=== PATIENT | male | born 1965 | race Hispanic/Latino ===

== ENCOUNTER 2018-08-26 15:43 | Emergency (ER) | payer OTHER | END 2018-08-26 17:09 | disposition home or self-care (01) | LOC: EDH 15:43 | DX: S90.112A Contusion of left great toe without damage to nail, initial encounter (principal); R60.0 Localized edema; E11.9 Type 2 diabetes mellitus without complications; I10 Essential (primary) hypertension; Z87.891 Personal history of nicotine dependence; X58.XXXA Exposure to other specified factors, initial encounter; Y93.89 Activity, other specified; Y92.89 Other specified places as the place of occurrence of the external cause; Y99.8 Other external cause status | CPT/HCPCS: 93971 ==

== ENCOUNTER 2018-09-15 15:19 | Inpatient (IN) | payer SELFPAY ==
[~2018-09-15] VITALS: Ht 182.9 cm; Wt 108.0 kg
[2018-09-15] MEDS ORDERED: MORPHINE SULFATE 2 MG/ML 1ML SYG ONE ×2 (15:50→19:23)
[2018-09-15 15:54] LABS: BASOPHILS % (AUTO) 0.3 % (0.0-5.0); HEMATOCRIT 37.3 % (42-54); LYMPHOCYTES % (AUTO) 9.1 % (21.0-51.0); MEAN CORPUSCULAR HEMOGLOBIN 31.4 pg (27.0-33.0); MEAN CORPUSCULAR HGB CONC 33.9 g/dL (32.0-36.0); MEAN CORPUSCULAR VOLUME 92.6 fL (79-99); MONOCYTES % (AUTO) 7.4 % (3.0-13.0); NEUTROPHILS % (AUTO) 83.2 % (40.0-77.0); NUCLEATED RED BLOOD CELLS 0.2 % (0.0-0.19); PLATELET COUNT (AUTO) 56 K/uL (130-400); RED BLOOD CELL COUNT(AUTO) 4.03 MIL/uL (4.50-6.20); WHITE BLOOD COUNT (AUTO) 6.2 K/uL (4.8-10.8)
[2018-09-15 16:05] LABS: CREATININE 1.4 mg/dL (0.5-1.5); POTASSIUM 4.3 mmol/L (3.5-5.1)
[2018-09-15 16:09] LABS: INR 1.1 (0.85-1.15); PARTIAL THROMBOPLASTIN TIME 26.1 SEC (26.3-35.5); PROTHROMBIN TIME 11.5 SEC (9.6-11.6)
[2018-09-15 16:19] LABS: ALBUMIN 2.8 g/dL (3.5-5.0); BILIRUBIN,TOTAL 1.4 mg/dL (0.2-1.0); TOTAL PROTEIN, SERUM 7.1 g/dL (6.0-8.3)
[2018-09-15 16:28] LABS: APPEARANCE,URINE CLOUDY (CLEAR); BILIRUBIN,URINE SMALL (NEGATIVE); COLOR,URINE YELLOW (YELLOW); GLUCOSE, URINE (UA) >=1000 mg/dL (NEGATIVE); KETONES,URINE 5 mg/dL (NEGATIVE); LEUKOCYTE ESTERASE ,URINE NEGATIVE (NEGATIVE); NITRATE,URINE NEGATIVE (NEGATIVE); OCCULT BLOOD,URINE LARGE (NEGATIVE); PH,URINE 5.5 (5.0-8.0); PROTEIN,URINE 30 mg/dL (NEGATIVE)
[2018-09-15 16:48] LABS: BACTERIA,URINE Moderate /HPF (None Seen); SQUAMOUS EPITHELIAL CELL,UR 30-50 /HPF (0-2)
[2018-09-15 16:56] LABS: WBC,URINE 0-1 /HPF (0-1)
[2018-09-15 17:13] LABS: PLATELET MORPHOLOGY COMMENT DECREASED
[2018-09-15] MEDS ORDERED: KETOROLAC TROMETHAMINE 30MG/ML ONE (19:23)
[2018-09-15] MEDS ORDERED: SODIUM CHLORIDE 0.9% 1000ML 1,000 ML IV SCH (20:00)
[2018-09-15 20:50] VITALS: BP 164/88
[2018-09-15] MEDS ORDERED: GLUCAGON 1MG KIT 1 MG ML IM PRN (22:00)
[2018-09-15] MEDS ORDERED: DEXTROSE 50%-WATER 50 ML DISP.SYRIN IV PRN (22:00)
[2018-09-15] MEDS ORDERED: LACTATED RINGERS 1000ML 1,000 ML IV SCH (22:00)
[2018-09-15] MEDS ORDERED: KETOROLAC TROMETHAMINE 30MG/ML IV SCH (22:00)
[2018-09-15] MEDS ORDERED: ONDANSETRON HCL 4 MG/2 ML VIAL IVP PRN (22:00)
[2018-09-15] MEDS ORDERED: INSU100V12 SQ (22:22)
[2018-09-15] MEDS ORDERED: INSU100C6 SQ (22:22)
[2018-09-15] MEDS: SODIUM CHLORIDE 0.9% 1000ML 1,000 ML IV SCH (23:44)
[2018-09-15] MEDS: INSULIN HUMULIN R 100 UNIT/ML 3ML SQ SCH (23:49)
[2018-09-16] VITALS (7 sets, daily range): BP systolic 148–170; BP diastolic 71–98
[2018-09-16] MEDS: MORPHINE SULFATE 2 MG/ML 1ML SYG IVP PRN ×4 (00:13→20:46)
[2018-09-16] MEDS: KETOROLAC TROMETHAMINE 30MG/ML IV PRN ×3 (01:00→13:15)
--- NOTE | 2018-09-16 01:04 | NUR ---
TCDB/IS Encouraged pt to do IS,turn cough and deep breathe,c/o pain when he moved.Medicated with Toradol iv.
--- NOTE | 2018-09-16 01:32 | NUR ---
VOIDS Pt voided per urinal,hob up 30 degrees,encouraged to cough and deep breathe,verbalized relief of pain after Toradol administered.
[2018-09-16 04:56] LABS: HEMATOCRIT 30.9 % (42-54); MEAN CORPUSCULAR HEMOGLOBIN 31.5 pg (27.0-33.0); MEAN CORPUSCULAR HGB CONC 34.4 g/dL (32.0-36.0); MEAN CORPUSCULAR VOLUME 91.5 fL (79-99); PLATELET COUNT (AUTO) 33 K/uL (130-400); RED BLOOD CELL COUNT(AUTO) 3.38 MIL/uL (4.50-6.20); WHITE BLOOD COUNT (AUTO) 3.1 K/uL (4.8-10.8)
[2018-09-16 05:14] LABS: ALBUMIN 2.2 g/dL (3.5-5.0); BILIRUBIN,TOTAL 1.5 mg/dL (0.2-1.0); CREATININE 0.9 mg/dL (0.5-1.5); POTASSIUM 3.7 mmol/L (3.5-5.1); TOTAL PROTEIN, SERUM 5.9 g/dL (6.0-8.3)
[2018-09-16] MEDS: SODIUM CHLORIDE 0.9% 1000ML 1,000 ML IV SCH ×3 (06:29→20:50)
[2018-09-16] MEDS: INSULIN HUMULIN R 100 UNIT/ML 3ML SQ SCH (06:34)
[2018-09-16] MEDS ORDERED: INSULIN R PO SS1 SQ SCH (07:30)
[2018-09-16] MEDS ORDERED: CHLORDIAZEPOXIDE HCL 25 MG CAP PO PRN (09:00)
[2018-09-16] MEDS ORDERED: PHARMACY COMMUNICATION MISC PRN (09:00)
[2018-09-16 09:29] LABS: HEMOGLOBIN A1C 8.5 % (4.0-6.0)
[2018-09-16] MEDS: FAMOTIDINE/PF 20 MG/2 ML VIAL IV SCH ×2 (09:30→20:48)
[2018-09-16] MEDS ORDERED: COMPOUND IV REFRIGERATED 1 EACH IVSOLN MISC PRN (10:30)
[2018-09-16] MEDS ORDERED: METFORMIN HCL 500 MG TABLET PO SCH (12:00)
[2018-09-16] MEDS: INSULIN LISPRO 100 UNIT/ML 3ML SQ SCH ×5 (13:18→20:58)
--- NOTE | 2018-09-16 14:00 | NUR ---
[facility] CM met with pt and family discussed dc plans. 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 Denies any equipments/services. Pt feels safe to go back home, still drives and works, spouse able to assist with transportation and needs. Pt is a self pay, [facility] assisting, given community resource spacket. DC plan to home once stable. CM to cont to follow up. Addendum: 09/16/18 at 2005 by KIERRA HAMMOND LVN CM Amended: Links added.
--- NOTE | 2018-09-16 14:26 | NUR ---
Diabetes diet education: Provided pt with printed materials on diabetes diet. Pt reports he has been a diabetic for over 10years and has never been to a community diabetes education class. TATY reviewed CHO counting, serving size and portion control. Pt with some questions, all questions answered by TATY. Please consult TATY as nutrition concerns arise. Addendum: 09/16/18 at [address] Amended: Links added.
--- NOTE | 2018-09-16 14:38 | NUR ---
Nutrition intervention: Nutrition consult for diet education. Diet education provided by TATY. Pt with no additional nutrition concerns with n/v/d, chewing or swallowing difficulties. LBM 09/16. Please consult TATY as nutrition concerns arise. Recommendations: Continue current diet therapy. Addendum: 09/16/18 at [address] Amended: Links added.
[2018-09-16] MEDS ORDERED: GLIPIZIDE 5 MG TABLET PO SCH (16:30)
[2018-09-16] MEDS: THIAMINE HCL 100 MG, FOLIC ACID 1 MG, M.V.I. IV [ADULT] 10 ML in SODIUM CHLORIDE 0.9% 1... IV SCH (17:02)
--- NOTE | 2018-09-16 17:12 | NUR ---
[facility] -- superficial abrasions noted. Recommendations to primary nurse.
[2018-09-16] MEDS: INSULIN GLARGINE 100 UNITS/ML 10 ML VIAL SQ SCH (20:57)
[2018-09-17] MEDS: KETOROLAC TROMETHAMINE 30MG/ML IV PRN ×2 (00:51→10:23)
[2018-09-17] MEDS: LORAZEPAM 2 MG/ML 1 ML VIAL IVP PRN ×2 (02:13→20:25)
[2018-09-17 05:37] LABS: BASOPHILS % (AUTO) 0.8 % (0.0-5.0); EOSINOPHILS % (AUTO) 1.6 % (0.0-8.0); HEMATOCRIT 30.5 % (42-54); LYMPHOCYTES % (AUTO) 22.6 % (21.0-51.0); MEAN CORPUSCULAR HEMOGLOBIN 31.7 pg (27.0-33.0); MEAN CORPUSCULAR HGB CONC 34.4 g/dL (32.0-36.0); MEAN CORPUSCULAR VOLUME 92.2 fL (79-99); MONOCYTES % (AUTO) 10.7 % (3.0-13.0); NEUTROPHILS % (AUTO) 64.3 % (40.0-77.0); PLATELET COUNT (AUTO) 25 K/uL (130-400); RED BLOOD CELL COUNT(AUTO) 3.31 MIL/uL (4.50-6.20); RED CELL DISTRIBUTION WIDTH 13.6 % (11.0-15.5); WHITE BLOOD COUNT (AUTO) 2.6 K/uL (4.8-10.8)
[2018-09-17 06:05] LABS: CREATININE 0.5 mg/dL (0.5-1.5); POTASSIUM 3.9 mmol/L (3.5-5.1)
[2018-09-17] MEDS: INSULIN LISPRO 100 UNIT/ML 3ML SQ SCH ×7 (06:55→21:26)
[2018-09-17 07:01] LABS: BASOPHILS % (MANUAL) 1 % (0-2); EOSINOPHILS % (MANUAL) 2 % (1-6); LYMPHOCYTES % (MANUAL) 20 % (22-44); MAN.DIFF COMMENT-IMPRESSION MANUAL DIFFERENTIAL; MONOCYTES % (MANUAL) 8 % (2-9); SEGMENTED NEUTROPHILS % 69 % (40-70)
[2018-09-17 07:05] LABS: PLATELET MORPHOLOGY COMMENT MARKED DECREASE
[2018-09-17 08:00] VITALS: BP 151/81
--- NOTE | 2018-09-17 08:23 | NUR ---
PATIENT UPDATE PT MOANING AND GROANING THE WHOLE NIGHT, MEDICATED TWICE FOR PAIN WITH MORPHINE 4 MG SLOW IV PUSH THEN TORADOL 30MG . FEELING HOT ALL OVER, TOOK HIS GOWN OFF, BILATERAL SCD'S. PROFUSE SWEATING, AFEBRILE. ON CIWA PROTOCOL, SCORED 22 AT 0200, ATIVAN 2 MG GIVEN IV AND PT FINALLY WAS ABLE TO SLEEP AFTER THE ATIVAN. CONTINUES WITH THE IVF OF NS AT 125 CC/HR AND BANANA BAG AT 100 CC/HR. PENDING A TLSO BRACE PER ORDERED BY DR. CAMERON. VOIDING PER URINAL, ADEQUATE URINE OUTPUT. BEING MONITORED CLOSELY FOR WITHDRAWAL SYMPTOMS , PT A KNOWN ALCOHOLIC.
[2018-09-17] MEDS: FAMOTIDINE/PF 20 MG/2 ML VIAL IV SCH ×2 (10:22→20:18)
[2018-09-17] MEDS: SODIUM CHLORIDE 0.9% 1000ML 1,000 ML IV SCH ×2 (10:22→17:46)
[2018-09-17 12:00] VITALS: BP 151/78
[2018-09-17] MEDS ORDERED: ACETAMINOPHEN-CODEINE 300/30MG TAB PO PRN (12:30)
[2018-09-17] MEDS: THIAMINE HCL 100 MG, FOLIC ACID 1 MG, M.V.I. IV [ADULT] 10 ML in SODIUM CHLORIDE 0.9% 1... IV SCH (13:03)
[2018-09-17 16:00] VITALS: BP 153/80
[2018-09-17] MEDS: ACETAMINOPHEN-CODEINE 300/30MG TAB PO PRN (17:55)
--- NOTE | 2018-09-17 17:55 | NUR ---
REPORT Gave nursing report eric nurse Irving Pierce, RN for continuation of care. TLSO brace was brought and patient was taught how to put it on by home equipment company staff delivering brace but patient opted not to put it on and he was reminded twice to put it on. At this time, he states he will put it on once he does not have as much pain. His pain level is 9 and he was medicated with tylenol # 2 two tablets as ordered by Dr. Smith. Nurse Villatoro made aware patient does not have brace on and needs to have it on. Patient at this time states he will do it later, once he is not hurting as much.
[2018-09-17 19:46] VITALS: BP 187/99
[2018-09-17] MEDS: INSULIN GLARGINE 100 UNITS/ML 10 ML VIAL SQ SCH (21:27)
[2018-09-17 23:19] VITALS: BP 152/84
[2018-09-18] MEDS: SODIUM CHLORIDE 0.9% 1000ML 1,000 ML IV SCH (03:27)
[2018-09-18] MEDS: ACETAMINOPHEN-CODEINE 300/30MG TAB PO PRN (04:00)
[2018-09-18 04:13] VITALS: BP 147/79
[2018-09-18 04:53] LABS: HEMATOCRIT 29.5 % (42-54); MEAN CORPUSCULAR HEMOGLOBIN 31.8 pg (27.0-33.0); MEAN CORPUSCULAR VOLUME 90.7 fL (79-99); NUCLEATED RED BLOOD CELLS 0.1 % (0.0-0.19); PLATELET COUNT (AUTO) 32 K/uL (130-400); RED BLOOD CELL COUNT(AUTO) 3.26 MIL/uL (4.50-6.20); RED CELL DISTRIBUTION WIDTH 13.5 % (11.0-15.5); WHITE BLOOD COUNT (AUTO) 3.3 K/uL (4.8-10.8)
[2018-09-18 04:58] LABS: EOSINOPHILS % (MANUAL) 2 % (1-6); LYMPHOCYTES % (MANUAL) 20 % (22-44); MAN.DIFF COMMENT-IMPRESSION MANUAL DIFFERENTIAL; MONOCYTES % (MANUAL) 6 % (2-9); SEGMENTED NEUTROPHILS % 72 % (40-70)
[2018-09-18 04:59] LABS: PLATELET MORPHOLOGY COMMENT MARKED DECREASE
[2018-09-18 05:06] LABS: CREATININE 0.6 mg/dL (0.5-1.5); POTASSIUM 3.7 mmol/L (3.5-5.1)
[2018-09-18] MEDS: INSULIN LISPRO 100 UNIT/ML 3ML SQ SCH ×4 (06:11→12:14)
[2018-09-18 08:00] VITALS: BP 161/88
--- NOTE | 2018-09-18 08:00 | NUR ---
AM SHIFT ASSESSMENT, SITTING IN CHAIR AND IS MOANING AND GROANING, STATES HIS RIB CAGE IS HURTING A LOT.
[2018-09-18] MEDS ORDERED: TYL3 PO (08:56)
[2018-09-18] MEDS: FAMOTIDINE/PF 20 MG/2 ML VIAL IV SCH (09:09)
[2018-09-18] MEDS: THIAMINE HCL 100 MG, FOLIC ACID 1 MG, M.V.I. IV [ADULT] 10 ML in SODIUM CHLORIDE 0.9% 1... IV SCH (09:49)
[2018-09-18 11:48] VITALS: BP 147/85
--- NOTE | 2018-09-18 13:33 | NUR ---
PAGED DR. ARSHAD CUBA SEE IF HE APPROVES DISCHARGE FOR TODAY.
--- NOTE | 2018-09-18 15:40 | NUR ---
DISCHARGED NOW USING TEACH BACK, WAS STILL COMPLAINING OF PAIN ,WEARING A BRACE BUT STATES NOT HELPING MUCH. RX. IN HAND FOR TYLENOL#3 BUT SPOUSE PLANS TO GO INTO [place] AND GET VICODIN.SALINE LOCK REMOVED AND STRESSED IMPRTANCE OF FOLLOWING UP WITH PCP.
== END 2018-09-18 15:30 | disposition home or self-care (01) | DRG 184 ==
LOC: EDH 15:19 → EDHIP 15:20 → 3BH 20:54
PROVIDERS: ADMIT Surgery; ATTEND Surgery
DX: S22.41XA Multiple fractures of ribs, right side, initial encounter for closed fracture (principal); S32.049A Unspecified fracture of fourth lumbar vertebra, initial encounter for closed fracture; S27.329A Contusion of lung, unspecified, initial encounter; M62.82 Rhabdomyolysis; D68.9 Coagulation defect, unspecified; F10.239 Alcohol dependence with withdrawal, unspecified; K74.60 Unspecified cirrhosis of liver; E11.9 Type 2 diabetes mellitus without complications; D69.6 Thrombocytopenia, unspecified; S00.81XA Abrasion of other part of head, initial encounter; W03.XXXA Other fall on same level due to collision with another person, initial encounter; Y93.89 Activity, other specified; Y92.89 Other specified places as the place of occurrence of the external cause; Y99.8 Other external cause status; Z79.4 Long term (current) use of insulin
CPT/HCPCS: 36415; 70450; 71045; 71250; 72125; 73030; 74176; 80048; 80053; 81001; 82550; 82948; 83036; 83880; 85025; 85027; 85610; 85730; 93005; 97039; G0378; G0480; J1815; J1885; J2060; J3411; J3490; J7030

== ENCOUNTER 2020-02-21 10:39 | Inpatient (IN) | payer MEDICAID ==
[~2020-02-21] VITALS: Ht 172.7 cm; Wt 110.8 kg
[~2020-02-21 10:39] MED LIST: INSU100C6 SQ; INSU100V12 SQ; TYL3 PO
[2020-02-21 11:35] LABS: BASOPHILS % (AUTO) 0.7 % (0.0-5.0); EOSINOPHILS % (AUTO) 1.4 % (0.0-8.0); HEMATOCRIT 32.3 % (42-54); LYMPHOCYTES % (AUTO) 19.1 % (21.0-51.0); MEAN CORPUSCULAR HEMOGLOBIN 32.7 pg (27.0-33.0); MEAN CORPUSCULAR HGB CONC 35.9 g/dL (32.0-36.0); MONOCYTES % (AUTO) 10.1 % (3.0-13.0); NEUTROPHILS % (AUTO) 68.2 % (40.0-77.0); PLATELET COUNT (AUTO) 60 K/uL (130-400); RED BLOOD CELL COUNT(AUTO) 3.55 MIL/uL (4.50-6.20); RED CELL DISTRIBUTION WIDTH 14.1 % (11.0-15.5); WHITE BLOOD COUNT (AUTO) 4.3 K/uL (4.8-10.8)
[2020-02-21 11:50] LABS: CREATININE 0.8 mg/dL (0.5-1.5)
[2020-02-21 11:54] LABS: ALBUMIN 1.8 g/dL (3.5-5.0); BILIRUBIN,TOTAL 1.9 mg/dL (0.2-1.0); TOTAL PROTEIN, SERUM 6.4 g/dL (6.0-8.3)
[2020-02-21 12:03] LABS: INR 1.11 (0.85-1.15); PROTHROMBIN TIME 11.8 SEC (9.6-11.6)
[2020-02-21 12:04] LABS: PARTIAL THROMBOPLASTIN TIME 25.9 SEC (26.3-35.5)
[2020-02-21] MEDS ORDERED: IOHEXOL-350 75 ML VIAL IV ONE (12:22)
[2020-02-21] MEDS ORDERED: DEXTROSE 50%-WATER 50 ML DISP.SYRIN IV PRN (16:00)
[2020-02-21] MEDS ORDERED: ONDANSETRON 4MG INJ IV PRN (16:00)
[2020-02-21] MEDS: CEFTRIAXONE 1G VIAL IV SCH (16:00)
[2020-02-21] MEDS ORDERED: GLUCAGON 1MG KIT 1 MG ML IM PRN (16:00)
[2020-02-21] MEDS ORDERED: LACTULOSE 20 GM/30 ML UDCUP PO PRN (16:00)
[2020-02-21] MEDS ORDERED: MORPHINE 2 MG SYG IV PRN (16:00)
[2020-02-21] MEDS: INSULIN HUMULIN R 100 UNIT/ML 3ML SQ SCH ×2 (16:30→21:00)
[2020-02-21] MEDS ORDERED: CEFTRIAXONE 1G VIAL ONE (16:31)
[2020-02-21] MEDS ORDERED: PANTOPRAZOLE 40 MG/VIAL ONE (20:36)
[2020-02-21] MEDS ORDERED: MORPHINE 2 MG SYG ONE (20:37)
[2020-02-21] MEDS: PANTOPRAZOLE 40 MG/VIAL IVP SCH (21:00)
[2020-02-21] MEDS ORDERED: INSULIN HUMULIN R 100 UNIT/ML 3ML ONE (23:34)
[2020-02-22] VITALS (9 sets, daily range): BP systolic 133–176; BP diastolic 61–93
[2020-02-22] MEDS ORDERED: TRAM50TA4 PO (01:55)
[2020-02-22] MEDS ORDERED: LACT10SO9 PO (01:55)
[2020-02-22] MEDS ORDERED: GABA-529 PO (01:55)
[2020-02-22] MEDS ORDERED: FURO20TA4 PO (01:55)
[2020-02-22] MEDS ORDERED: SPIR50TA5 PO (01:55)
[2020-02-22] MEDS ORDERED: QUET100T34 PO (01:55)
[2020-02-22 05:17] LABS: HEMATOCRIT 30.4 % (42-54); LYMPHOCYTES % (AUTO) 22.3 % (21.0-51.0); MEAN CORPUSCULAR HEMOGLOBIN 32.4 pg (27.0-33.0); MEAN CORPUSCULAR HGB CONC 35.5 g/dL (32.0-36.0); MEAN CORPUSCULAR VOLUME 91.3 fL (79-99); MONOCYTES % (AUTO) 12.2 % (3.0-13.0); NEUTROPHILS % (AUTO) 61.2 % (40.0-77.0); PLATELET COUNT (AUTO) 51 K/uL (130-400); RED BLOOD CELL COUNT(AUTO) 3.33 MIL/uL (4.50-6.20)
[2020-02-22] MEDS: INSULIN HUMULIN R 100 UNIT/ML 3ML SQ SCH ×4 (05:26→21:36)
[2020-02-22 05:35] LABS: CREATININE 0.8 mg/dL (0.5-1.5); POTASSIUM 3.6 mmol/L (3.5-5.1)
[2020-02-22 05:51] LABS: INR 1.14 (0.85-1.15); PROTHROMBIN TIME 12.1 SEC (9.6-11.6)
[2020-02-22 12:27] LABS: ALBUMIN 1.6 g/dL (3.5-5.0); BILIRUBIN,DIRECT 0.4 mg/dL (0.0-0.3); BILIRUBIN,TOTAL 1.3 mg/dL (0.2-1.0); TOTAL PROTEIN, SERUM 5.8 g/dL (6.0-8.3)
[2020-02-22] MEDS: PANTOPRAZOLE 40 MG/VIAL IVP SCH ×2 (12:33→21:33)
[2020-02-22 13:03] LABS: APPEARANCE,URINE CLEAR (CLEAR); BILIRUBIN,URINE SMALL (NEGATIVE); COLOR,URINE YELLOW (YELLOW); GLUCOSE, URINE (UA) 100 mg/dL (NEGATIVE); KETONES,URINE NEGATIVE (NEGATIVE); LEUKOCYTE ESTERASE ,URINE NEGATIVE (NEGATIVE); NITRATE,URINE NEGATIVE (NEGATIVE); OCCULT BLOOD,URINE LARGE (NEGATIVE); PROTEIN,URINE 100 mg/dL (NEGATIVE)
[2020-02-22 13:11] LABS: BACTERIA,URINE Rare /HPF (None Seen); SQUAMOUS EPITHELIAL CELL,UR Few /HPF (0-2); WBC,URINE 0-1 /HPF (0-1)
[2020-02-22 13:47] LABS: APPEARANCE BODY FLUID CLEAR (CLEAR); COLOR,BODY FLUID YELLOW (LT YELLOW); SPECIMENTYPE,BODY FLUID ASCITES
[2020-02-22 13:48] LABS: BODY FLUID RBC 75 /cu. mm.; BODY FLUID WBC 114 /cu. mm.; TOTAL VOLUME,BODY FLUID 3000 mL
[2020-02-22 14:27] LABS: BF LYMPHOCYTE 35 %; BF MESOTHELIAL 11 %; BF MONOCYTE 9 %
[2020-02-22] MEDS: CEFTRIAXONE 1G VIAL IV SCH (16:51)
[2020-02-22] MEDS: FUROSEMIDE 40MG VIAL IV SCH (16:51)
[2020-02-22] MEDS: GABAPENTIN 100 MG CAPSULE PO SCH ×2 (16:53→21:34)
[2020-02-22] MEDS ORDERED: QUETIAPINE FUMARATE 100 MG TAB PO SCH (21:00)
[2020-02-22] MEDS ORDERED: INSULIN GLARGINE 100 UNITS/ML 10 ML VIAL SQ SCH (21:00)
[2020-02-22] MEDS: LACTULOSE 20 GM/30 ML UDCUP PO SCH (21:34)
[2020-02-23] MEDS: FUROSEMIDE 40MG VIAL IV SCH ×2 (00:17→12:15)
[2020-02-23 03:57] VITALS: BP 114/64
[2020-02-23 05:28] LABS: BASOPHILS % (AUTO) 0.9 % (0.0-5.0); EOSINOPHILS % (AUTO) 1.8 % (0.0-8.0); LYMPHOCYTES % (AUTO) 30.3 % (21.0-51.0); MEAN CORPUSCULAR HEMOGLOBIN 32.3 pg (27.0-33.0); MEAN CORPUSCULAR HGB CONC 35.6 g/dL (32.0-36.0); MEAN CORPUSCULAR VOLUME 90.9 fL (79-99); MONOCYTES % (AUTO) 14.5 % (3.0-13.0); NEUTROPHILS % (AUTO) 52.5 % (40.0-77.0); PLATELET COUNT (AUTO) 38 K/uL (130-400); RED BLOOD CELL COUNT(AUTO) 2.97 MIL/uL (4.50-6.20); RED CELL DISTRIBUTION WIDTH 13.7 % (11.0-15.5); WHITE BLOOD COUNT (AUTO) 2.3 K/uL (4.8-10.8)
[2020-02-23 06:03] LABS: ALBUMIN 1.3 g/dL (3.5-5.0); BILIRUBIN,TOTAL 0.7 mg/dL (0.2-1.0); POTASSIUM 3.5 mmol/L (3.5-5.1); TOTAL PROTEIN, SERUM 5.1 g/dL (6.0-8.3)
[2020-02-23] MEDS: INSULIN HUMULIN R 100 UNIT/ML 3ML SQ SCH ×2 (06:07→12:41)
[2020-02-23 07:13] LABS: LYMPHOCYTES % (MANUAL) 21 % (22-44); MAN.DIFF COMMENT-IMPRESSION MANUAL DIFFERENTIAL; MONOCYTES % (MANUAL) 6 % (2-9); PLATELET MORPHOLOGY COMMENT MARKED DECREASE; SEGMENTED NEUTROPHILS % 73 % (40-70)
[2020-02-23] MEDS: PANTOPRAZOLE 40 MG/VIAL IVP SCH (08:26)
[2020-02-23] MEDS: LACTULOSE 20 GM/30 ML UDCUP PO SCH (08:26)
[2020-02-23] MEDS: GABAPENTIN 100 MG CAPSULE PO SCH (08:26)
[2020-02-23 08:42] VITALS: BP 95/56
[2020-02-23] MEDS ORDERED: NON-FORMULARY MEDICATION 1 EACH (Spironolactone 50 MG) PO SCH (09:00)
[2020-02-23] MEDS ORDERED: SPIRONOLACTONE 25 MG TAB PO SCH (09:00)
[2020-02-23] MEDS ORDERED: CIPR-278 PO (10:11)
[2020-02-23 11:23] VITALS: BP 124/68
[2020-02-23] MEDS ORDERED: INSULIN HUMULIN R 100 UNIT/ML 3ML SQ SCH (11:30)
[2020-09-25] MEDS ORDERED: INSNOV SQ (16:37)
[2020-09-25] MEDS ORDERED: SPIR100T PO (16:37)
== END 2020-02-23 14:00 | disposition home or self-care (01) | DRG 280 ==
LOC: EDH 10:39 → EDHIP 10:40 → 3AH 23:46
PROVIDERS: ADMIT Hospitalist; ATTEND Hospitalist
PROC: 0W9G3ZZ Drainage of Peritoneal Cavity, Percutaneous Approach (ICD-10-PCS; principal; 2020-02-22)
DX: K70.31 Alcoholic cirrhosis of liver with ascites (principal); I81 Portal vein thrombosis; J90 Pleural effusion, not elsewhere classified; D61.818 Other pancytopenia; D69.6 Thrombocytopenia, unspecified; E11.22 Type 2 diabetes mellitus with diabetic chronic kidney disease; N18.9 Chronic kidney disease, unspecified; F41.9 Anxiety disorder, unspecified; K80.20 Calculus of gallbladder without cholecystitis without obstruction; I13.10 Hypertensive heart and chronic kidney disease without heart failure, with stage 1 through stage 4 chronic kidney disease, or unspecified chronic kidney disease; K29.70 Gastritis, unspecified, without bleeding; E88.09 Other disorders of plasma-protein metabolism, not elsewhere classified; K76.6 Portal hypertension; Z80.9 Family history of malignant neoplasm, unspecified; Z82.49 Family history of ischemic heart disease and other diseases of the circulatory system
CPT/HCPCS: 36415; 49083; 71045; 74177; 80048; 80053; 80076; 81001; 82948; 83605; 83690; 83880; 84484; 85025; 85610; 85730; 87071; 87205; 89051; 93005; C1729; C9113; G0378; J0696; J1815; J1940; Q9967

== ENCOUNTER 2020-06-01 18:02 | Inpatient (IN) | payer MEDICAID ==
[~2020-06-01] VITALS: Ht 170.2 cm; Wt 106.0 kg
[~2020-06-01 18:02] MED LIST changes: +CIPR-278 PO; +FURO20TA4 PO; +GABA-529 PO; +LACT10SO9 PO; +QUET100T34 PO; +SPIR50TA5 PO; +TRAM50TA4 PO; -TYL3 PO
[2020-06-01 18:42] LABS: BASOPHILS % (AUTO) 0.8 % (0.0-5.0); HEMATOCRIT 26.8 % (42-54); LYMPHOCYTES % (AUTO) 15.8 % (21.0-51.0); MEAN CORPUSCULAR HEMOGLOBIN 32.4 pg (27.0-33.0); MEAN CORPUSCULAR VOLUME 95.4 fL (79-99); MONOCYTES % (AUTO) 12.6 % (3.0-13.0); PLATELET COUNT (AUTO) 69 K/uL (130-400); RED BLOOD CELL COUNT(AUTO) 2.81 MIL/uL (4.50-6.20); RED CELL DISTRIBUTION WIDTH 14.8 % (11.0-15.5); WHITE BLOOD COUNT (AUTO) 5.1 K/uL (4.8-10.8)
[2020-06-01 18:52] LABS: CREATININE 0.9 mg/dL (0.5-1.5)
[2020-06-01 18:56] LABS: ALBUMIN 1.9 g/dL (3.5-5.0); BILIRUBIN,TOTAL 2.7 mg/dL (0.2-1.0); TOTAL PROTEIN, SERUM 6.6 g/dL (6.0-8.3)
[2020-06-01 21:32] LABS: ABG BASE EXCESS -1.1 mmol/L (-2.0-3.0); ABG HCO3 21.6 mmol/L (21.0-28.0); ABG OXYGEN SATURATION 92.3 % (95.0-99.0); ABG PCO2 31 mmHg (35-48)
[2020-06-01] MEDS ORDERED: LACTULOSE 20 GM/30 ML UDCUP ONE (23:52)
[2020-06-01] MEDS ORDERED: CEFTRIAXONE 1G VIAL ONE (23:52)
[2020-06-01 23:57] LABS: APPEARANCE,URINE Clear (CLEAR); BILIRUBIN,URINE Moderate (NEGATIVE); COLOR,URINE Dark Yellow (YELLOW); GLUCOSE, URINE (UA) Negative (NEGATIVE); KETONES,URINE Negative (NEGATIVE); LEUKOCYTE ESTERASE ,URINE Trace (NEGATIVE); NITRATE,URINE Negative (NEGATIVE); OCCULT BLOOD,URINE Moderate (NEGATIVE); PH,URINE 5.5 (5.0-8.0); PROTEIN,URINE Trace mg/dL (NEGATIVE)
[2020-06-02 00:05] LABS: AMPHET/METH SCREEN,URINE NEGATIVE (NEGATIVE); BARBITURATE SCREEN, URINE NEGATIVE (NEGATIVE); BENZODIAZEPINES SCREEN,URINE NEGATIVE (NEGATIVE); CANNABINOID SCREEN,URINE POSITIVE (NEGATIVE); COCAINE SCREEN,URINE NEGATIVE (NEGATIVE); OPIATE SCREEN,URINE NEGATIVE (NEGATIVE); PHENCYCLIDINE SCREEN,URINE NEGATIVE (NEGATIVE)
[2020-06-02 00:07] LABS: BACTERIA,URINE Few /HPF (None Seen)
[2020-06-02 00:08] LABS: MUCUS,URINE Moderate LPF (None Seen); SQUAMOUS EPITHELIAL CELL,UR Few /HPF (0-2)
[2020-06-02] MEDS ORDERED: MORPHINE 2 MG SYG ONE (00:36)
[2020-06-02 06:43] LABS: BASOPHILS % (AUTO) 0.5 % (0.0-5.0); EOSINOPHILS % (AUTO) 1.7 % (0.0-8.0); HEMATOCRIT 25.8 % (42-54); LYMPHOCYTES % (AUTO) 17.2 % (21.0-51.0); MEAN CORPUSCULAR HEMOGLOBIN 31.3 pg (27.0-33.0); MEAN CORPUSCULAR HGB CONC 33.3 g/dL (32.0-36.0); MEAN CORPUSCULAR VOLUME 93.8 fL (79-99); MONOCYTES % (AUTO) 14.3 % (3.0-13.0); NEUTROPHILS % (AUTO) 66.1 % (40.0-77.0); PLATELET COUNT (AUTO) 56 K/uL (130-400); RED BLOOD CELL COUNT(AUTO) 2.75 MIL/uL (4.50-6.20); RED CELL DISTRIBUTION WIDTH 14.8 % (11.0-15.5); WHITE BLOOD COUNT (AUTO) 4.1 K/uL (4.8-10.8)
[2020-06-02 06:50] LABS: CREATININE 0.8 mg/dL (0.5-1.5)
[2020-06-02] MEDS ORDERED: INSULIN HUMULIN R 100 UNIT/ML 3ML ONE (08:02)
[2020-06-02] MEDS ORDERED: LACTULOSE 20 GM/30 ML UDCUP ONE (08:04)
[2020-06-02] MEDS ORDERED: PANTOPRAZOLE 40 MG TAB DR ONE (08:04)
[2020-06-02 08:47] VITALS: BP 146/72
[2020-06-02 12:01] VITALS: BP 122/71
[2020-06-02] MEDS: CEFTRIAXONE 1G VIAL IVP SCH ×2 (14:00→15:45)
[2020-06-02] MEDS: PANTOPRAZOLE 40 MG TAB DR PO SCH (14:00)
[2020-06-02] MEDS: THIAMINE HCL 100 MG TABLET PO SCH (15:45)
[2020-06-02] MEDS ORDERED: ALBUMIN (HUMAN) 25% 200 ML IV ONE (16:00)
[2020-06-02 16:15] LABS: INR 1.22 (0.85-1.15); PROTHROMBIN TIME 13.1 SEC (9.6-11.6)
[2020-06-02 16:17] LABS: PARTIAL THROMBOPLASTIN TIME 25.9 SEC (26.3-35.5)
[2020-06-02 17:20] VITALS: BP 152/80
[2020-06-02 18:00] VITALS: BP 137/74
[2020-06-02 18:12] LABS: APPEARANCE BODY FLUID SLIGHTLY CLOUDY (CLEAR); COLOR,BODY FLUID YELLOW (LT YELLOW); SPECIMENTYPE,BODY FLUID ASCITES
[2020-06-02 18:13] LABS: BODY FLUID RBC 268 /cu. mm.; BODY FLUID WBC 164 /cu. mm.; TOTAL VOLUME,BODY FLUID 1100 mL
[2020-06-02 20:04] LABS: BF LYMPHOCYTE 12 %; BF MESOTHELIAL 7 %; BF MONOCYTE 2 %; BF OTHER CELLS 3
[2020-06-02 21:43] VITALS: BP 120/57
[2020-06-02] MEDS: LACTULOSE 20 GM/30 ML UDCUP PO SCH (21:51)
[2020-06-03] VITALS (8 sets, daily range): BP systolic 120–160; BP diastolic 60–85
[2020-06-03] MEDS: LACTULOSE 20 GM/30 ML UDCUP PO SCH ×3 (06:00→21:03)
[2020-06-03] MEDS: PANTOPRAZOLE 40 MG TAB DR PO SCH (12:56)
[2020-06-03] MEDS: MORPHINE 2 MG SYG IVP PRN ×2 (12:56→21:10)
[2020-06-03] MEDS: THIAMINE HCL 100 MG TABLET PO SCH (12:58)
[2020-06-03] MEDS ORDERED: SPIR100T5 PO (15:33)
[2020-06-03] MEDS ORDERED: FURO40SO PO (15:34)
[2020-06-03] MEDS ORDERED: MENT118G TP (15:40)
[2020-06-03] MEDS: INSULIN HUMULIN R 100 UNIT/ML 3ML SQ SCH ×2 (16:27→21:00)
[2020-06-04 04:11] VITALS: BP 132/65
[2020-06-04 05:20] LABS: MEAN CORPUSCULAR HGB CONC 34.4 g/dL (32.0-36.0); MEAN CORPUSCULAR VOLUME 92.9 fL (79-99); RED BLOOD CELL COUNT(AUTO) 2.69 MIL/uL (4.50-6.20); RED CELL DISTRIBUTION WIDTH 14.6 % (11.0-15.5); WHITE BLOOD COUNT (AUTO) 2.3 K/uL (4.8-10.8)
[2020-06-04 05:35] LABS: ALBUMIN 1.8 g/dL (3.5-5.0); BILIRUBIN,TOTAL 2.1 mg/dL (0.2-1.0); CREATININE 0.9 mg/dL (0.5-1.5); MAGNESIUM 1.7 mg/dL (1.80-2.40); POTASSIUM 3.9 mmol/L (3.5-5.1); TOTAL PROTEIN, SERUM 6.1 g/dL (6.0-8.3)
[2020-06-04] MEDS: LACTULOSE 20 GM/30 ML UDCUP PO SCH ×3 (05:42→20:50)
[2020-06-04] MEDS: INSULIN HUMULIN R 100 UNIT/ML 3ML SQ SCH ×4 (07:16→21:00)
[2020-06-04 08:00] VITALS: BP 133/77
[2020-06-04 12:00] VITALS: BP 140/83
[2020-06-04] MEDS: CEFTRIAXONE 1G VIAL IVP SCH (13:17)
[2020-06-04] MEDS: THIAMINE HCL 100 MG TABLET PO SCH (13:18)
[2020-06-04] MEDS: PANTOPRAZOLE 40 MG TAB DR PO SCH (13:18)
[2020-06-04] MEDS: MORPHINE 2 MG SYG IVP PRN ×2 (13:32→21:39)
[2020-06-04 16:00] VITALS: BP 168/89
[2020-06-04] MEDS ORDERED: MAGNESIUM 2GM PREMIX 50ML 50 ML IV SCH ×2 (18:15)
[2020-06-04 20:45] VITALS: BP 142/82
[2020-06-05 00:49] VITALS: BP 146/72
[2020-06-05 04:33] VITALS: BP 122/61
[2020-06-05] MEDS: LACTULOSE 20 GM/30 ML UDCUP PO SCH ×2 (06:09→14:32)
[2020-06-05] MEDS: INSULIN HUMULIN R 100 UNIT/ML 3ML SQ SCH ×2 (06:16→12:47)
[2020-06-05 09:43] VITALS: BP 141/67
[2020-06-05] MEDS: MORPHINE 2 MG SYG IVP PRN (12:47)
[2020-06-05 13:49] VITALS: BP 134/74
[2020-06-05] MEDS: CEFTRIAXONE 1G VIAL IVP SCH (14:32)
[2020-06-05] MEDS: THIAMINE HCL 100 MG TABLET PO SCH (14:33)
[2020-06-05] MEDS: PANTOPRAZOLE 40 MG TAB DR PO SCH (14:33)
[2020-09-25] MEDS ORDERED: INSNOV SQ (16:37)
[2020-09-25] MEDS ORDERED: SPIR100T PO (16:37)
== END 2020-06-05 16:25 | disposition home or self-care (01) | DRG 280 ==
LOC: EDH 18:02 → EDHIP 18:03 → 3BH 06-02 09:39
PROVIDERS: ADMIT Internal Medicine Infectious Disease; ATTEND Internal Medicine Infectious Disease
PROC: 0W9G3ZZ Drainage of Peritoneal Cavity, Percutaneous Approach (ICD-10-PCS; principal; 2020-06-02)
DX: K70.31 Alcoholic cirrhosis of liver with ascites (principal); G93.41 Metabolic encephalopathy; D69.6 Thrombocytopenia, unspecified; D64.9 Anemia, unspecified; K92.2 Gastrointestinal hemorrhage, unspecified; I85.00 Esophageal varices without bleeding; N39.0 Urinary tract infection, site not specified; E11.9 Type 2 diabetes mellitus without complications; G89.29 Other chronic pain; I10 Essential (primary) hypertension; R53.81 Other malaise; R74.8 Abnormal levels of other serum enzymes; M54.9 Dorsalgia, unspecified; M19.90 Unspecified osteoarthritis, unspecified site; K80.20 Calculus of gallbladder without cholecystitis without obstruction; I86.8 Varicose veins of other specified sites; F41.9 Anxiety disorder, unspecified; Z86.19 Personal history of other infectious and parasitic diseases
CPT/HCPCS: 36415; 36600; 49083; 80048; 80053; 80305; 81001; 82150; 82270; 82803; 82948; 83690; 83735; 85025; 85027; 85610; 85730; 87071; 87205; 89051; 93005; C1729; G0378; J0696; J1815; J3475; P9046

== ENCOUNTER 2020-06-09 12:36 | Emergency (ER) | payer MEDICAID ==
[~2020-06-09 12:36] MED LIST changes: -CIPR-278 PO; -FURO20TA4 PO; +FURO40SO PO; -GABA-529 PO; -INSU100C6 SQ; +MENT118G TP; -QUET100T34 PO; +SPIR100T5 PO; -SPIR50TA5 PO
[2020-06-09 13:17] LABS: BASOPHILS % (AUTO) 0.8 % (0.0-5.0); EOSINOPHILS % (AUTO) 1.1 % (0.0-8.0); LYMPHOCYTES % (AUTO) 21.2 % (21.0-51.0); MEAN CORPUSCULAR HEMOGLOBIN 31.8 pg (27.0-33.0); MEAN CORPUSCULAR HGB CONC 33.7 g/dL (32.0-36.0); MEAN CORPUSCULAR VOLUME 94.4 fL (79-99); MONOCYTES % (AUTO) 11.7 % (3.0-13.0); NEUTROPHILS % (AUTO) 64.9 % (40.0-77.0); PLATELET COUNT (AUTO) 59 K/uL (130-400); RED BLOOD CELL COUNT(AUTO) 2.86 MIL/uL (4.50-6.20); RED CELL DISTRIBUTION WIDTH 14.5 % (11.0-15.5); WHITE BLOOD COUNT (AUTO) 3.8 K/uL (4.8-10.8)
[2020-06-09 13:26] LABS: INR 1.23 (0.85-1.15); PROTHROMBIN TIME 13.2 SEC (9.6-11.6)
[2020-06-09 13:27] LABS: PARTIAL THROMBOPLASTIN TIME 25.5 SEC (26.3-35.5)
[2020-06-09 13:33] LABS: CREATININE 1.2 mg/dL (0.5-1.5); POTASSIUM 4.5 mmol/L (3.5-5.1)
[2020-06-09 13:43] LABS: ALBUMIN 1.8 g/dL (3.5-5.0); BILIRUBIN,TOTAL 1.7 mg/dL (0.2-1.0); TOTAL PROTEIN, SERUM 6.5 g/dL (6.0-8.3)
[2020-06-09 13:48] LABS: B-TYPE NATRIURETIC PEPTIDE 198 pg/mL (0-100)
[2020-06-09] MEDS ORDERED: SODIUM CHLORIDE 0.9% 1000ML 1,000 ML IV ONE (13:48)
[2020-06-09] MEDS ORDERED: INSULIN HUMULIN R 100 UNIT/ML 3ML ONE (13:49)
[2020-06-09] MEDS ORDERED: FUROSEMIDE 10 MG/ML 4ML VIAL ONE (13:49)
[2020-06-09 13:51] LABS: PLATELET MORPHOLOGY COMMENT DECREASED
[2020-06-09 14:31] LABS: APPEARANCE,URINE Clear (CLEAR); BILIRUBIN,URINE Negative (NEGATIVE); COLOR,URINE Yellow (YELLOW); GLUCOSE, URINE (UA) TRACE mg/dL (NEGATIVE); KETONES,URINE Negative (NEGATIVE); LEUKOCYTE ESTERASE ,URINE Negative (NEGATIVE); NITRATE,URINE Negative (NEGATIVE); OCCULT BLOOD,URINE Moderate (NEGATIVE); PH,URINE 5.5 (5.0-8.0); PROTEIN,URINE Negative (NEGATIVE); UROBILINOGEN,URINE 0.2 mg/dL (0.2-1.0)
[2020-06-09 14:43] LABS: BACTERIA,URINE Rare /HPF (None Seen); RBC,URINE 0-1 /HPF (0-1); WBC,URINE None Seen /HPF (0-1)
[2020-06-09 14:44] LABS: SQUAMOUS EPITHELIAL CELL,UR Rare /HPF (0-2)
== END 2020-06-09 16:35 | disposition home or self-care (01) ==
LOC: EDH 12:36
DX: J90 Pleural effusion, not elsewhere classified (principal); E11.9 Type 2 diabetes mellitus without complications; Z20.822 Contact with and (suspected) exposure to COVID-19; M19.90 Unspecified osteoarthritis, unspecified site; F41.9 Anxiety disorder, unspecified; I10 Essential (primary) hypertension; Z87.891 Personal history of nicotine dependence; Z79.899 Other long term (current) drug therapy
CPT/HCPCS: 32555; 36415; 71045 ×2; 76705; 80053; 81001; 82948; 83880; 84484; 85025; 85610; 85730; 87426; 93005; 96361; 96374; 96375; 99285; A4215; J1815; J1940; J7030; U0003

== ENCOUNTER 2020-06-27 06:00 | Day surgery (SDC) | payer MEDICAID ==
[~2020-06-27] VITALS: Ht 172.7 cm; Wt 94.8 kg
[2020-06-27 06:00] VITALS: BP 104/58
[2020-06-27] MEDS ORDERED: SODIUM CHLORIDE 0.9% 1000ML 1,000 ML IV ONE (06:13)
[2020-06-27] MEDS ORDERED: INSULIN HUMULIN R 100 UNIT/ML 3ML ONE ×2 (07:29→08:15)
[2020-06-27] MEDS ORDERED: PROPOFOL 10 MG/ML 20ML VIAL IV ONE ×2 (07:38→07:42)
[2020-06-27] MEDS ORDERED: GLYCOPYRROLATE 1 MG/5 ML SYRINGE ONE (07:38)
[2020-06-27] MEDS ORDERED: LIDOCAINE HCL 1% 20 ML VIAL ONE (07:38)
[2020-06-27 07:50] VITALS: BP 95/51
[2020-06-27 07:55] VITALS: BP 110/54
[2020-06-27 08:00] VITALS: BP 138/69
[2020-06-27 08:15] VITALS: BP 139/75
[2020-06-27 08:30] VITALS: BP 120/69
== END 2020-06-27 08:40 | disposition home or self-care (01) ==
LOC: ENDO 06:00 → DAH 06:00 → ENDO 08:40
PROVIDERS: ATTEND Internal Medicine Gastroenterology
DX: I85.10 Secondary esophageal varices without bleeding (principal); Z20.822 Contact with and (suspected) exposure to COVID-19; K74.69 Other cirrhosis of liver; K29.70 Gastritis, unspecified, without bleeding; I81 Portal vein thrombosis; I10 Essential (primary) hypertension; F41.9 Anxiety disorder, unspecified; E11.9 Type 2 diabetes mellitus without complications; M19.90 Unspecified osteoarthritis, unspecified site; K80.20 Calculus of gallbladder without cholecystitis without obstruction; Z79.4 Long term (current) use of insulin; Z79.899 Other long term (current) drug therapy; Z86.19 Personal history of other infectious and parasitic diseases; Z98.890 Other specified postprocedural states
CPT/HCPCS: 43244; 82948 ×3; A4215 ×2; A4221; A4222; A4223; A4606; A4620; A4657; A4663; C9803; J1815 ×2; J2704 ×2; J3490; J7030; U0003

== ENCOUNTER 2020-07-22 00:38 | Inpatient (IN) | payer MEDICAID ==
[~2020-07-22] VITALS: Ht 172.7 cm; Wt 90.9 kg
[2020-07-22] VITALS (8 sets, daily range): BP systolic 118–169; BP diastolic 44–75
[2020-07-22 04:15] LABS: BASOPHILS % (AUTO) 0.5 % (0.0-5.0); EOSINOPHILS % (AUTO) 1.2 % (0.0-8.0); HEMATOCRIT 31.7 % (42-54); LYMPHOCYTES % (AUTO) 11.7 % (21.0-51.0); MEAN CORPUSCULAR HEMOGLOBIN 30.1 pg (27.0-33.0); MEAN CORPUSCULAR HGB CONC 34.1 g/dL (32.0-36.0); MEAN CORPUSCULAR VOLUME 88.3 fL (79-99); MONOCYTES % (AUTO) 7.4 % (3.0-13.0); NEUTROPHILS % (AUTO) 78.5 % (40.0-77.0); PLATELET COUNT (AUTO) 67 K/uL (130-400); RED BLOOD CELL COUNT(AUTO) 3.59 MIL/uL (4.50-6.20); RED CELL DISTRIBUTION WIDTH 14.4 % (11.0-15.5)
[2020-07-22] MEDS ORDERED: ONDANSETRON HCL 4 MG/2 ML VIAL IVP SCH (04:15)
[2020-07-22] MEDS ORDERED: METOCLOPRAMIDE 10 MG/2 ML VIAL IVP SCH (04:15)
[2020-07-22] MEDS ORDERED: PANTOPRAZOLE 40 MG/VIAL IV SCH (04:15)
[2020-07-22] MEDS ORDERED: SODIUM CHLORIDE 0.9% 1000ML 1,000 ML IV SCH (04:15)
[2020-07-22] MEDS ORDERED: FAMOTIDINE/PF 20 MG/2 ML VIAL IV SCH (04:15)
[2020-07-22 04:20] LABS: CARBON DIOXIDE 27 mmol/L (21-32); CHLORIDE 98 mmol/L (101-111); CREATININE 1.4 mg/dL (0.5-1.5); GLOMERULAR FILTR. RATE CALC 56 mL/min (>60); GLUCOSE,RANDOM 152 mg/dL (70-105); POTASSIUM 4.6 mmol/L (3.5-5.1); SODIUM SERUM 132 mmol/L (136-145); UREA NITROGEN, BLOOD 23 mg/dL (7-18)
[2020-07-22 04:24] LABS: ALANINE AMINOTRANSFERASE 76 U/L (12-78); ALBUMIN 2.6 g/dL (3.5-5.0); ALCOHOL, BLOOD < 3 mg/dL (0-10); ASPARTATE AMINOTRANSFERASE 98 U/L (10-37); BILIRUBIN,TOTAL 1.5 mg/dL (0.2-1.0); INR 1.14 (0.85-1.15); LIPASE 594 U/L (114-286); PROTHROMBIN TIME 12.3 SEC (9.6-11.6); TOTAL PROTEIN, SERUM 8.8 g/dL (6.0-8.3)
[2020-07-22 04:25] LABS: PARTIAL THROMBOPLASTIN TIME 26.7 SEC (26.3-35.5)
[2020-07-22 05:09] LABS: APPEARANCE,URINE Clear (CLEAR); BILIRUBIN,URINE Negative (NEGATIVE); COLOR,URINE Yellow (YELLOW); GLUCOSE, URINE (UA) Negative (NEGATIVE); KETONES,URINE Negative (NEGATIVE); LEUKOCYTE ESTERASE ,URINE Negative (NEGATIVE); NITRATE,URINE Negative (NEGATIVE); OCCULT BLOOD,URINE Moderate (NEGATIVE); PROTEIN,URINE Negative (NEGATIVE)
[2020-07-22 05:17] LABS: BACTERIA,URINE None Seen /HPF (None Seen); SQUAMOUS EPITHELIAL CELL,UR Rare /HPF (0-2); WBC,URINE None Seen /HPF (0-1)
[2020-07-22] MEDS ORDERED: ONDANSETRON HCL 4 MG/2 ML VIAL IV PRN (07:00)
[2020-07-22] MEDS ORDERED: LACTULOSE 20 GM/30 ML UDCUP PO PRN (07:00)
[2020-07-22] MEDS: SODIUM CHLORIDE 0.9% 1000ML 1,000 ML IV SCH ×2 (08:24→20:49)
[2020-07-22] MEDS: PANTOPRAZOLE SODIUM 80 MG in SODIUM CHLORIDE 0.9% 100 ML IV SCH (08:24)
[2020-07-22] MEDS: LACTULOSE 20 GM/30 ML UDCUP PO SCH ×2 (08:25→22:08)
[2020-07-22] MEDS ORDERED: OCTREOTIDE ACETATE 1,250 MCG in SODIUM CHLORIDE 0.9% 250 ML IV SCH (09:40)
[2020-07-22 09:44] LABS: HEMATOCRIT 26.2 % (42-54)
[2020-07-22] MEDS ORDERED: ACETAMINOPHEN 325 MG TAB PO SCH (10:45)
[2020-07-22] MEDS ORDERED: INSULIN HUMULIN R 100 UNIT/ML 3ML SQ SCH (12:00)
[2020-07-22 15:25] LABS: HEMATOCRIT 28.2 % (42-54)
[2020-07-22 21:03] LABS: HEMATOCRIT 25.9 % (42-54)
[2020-07-23] VITALS (8 sets, daily range): BP systolic 124–157; BP diastolic 57–81
[2020-07-23] MEDS ORDERED: PANTOPRAZOLE 40 MG/VIAL ONE (03:19)
[2020-07-23] MEDS: PANTOPRAZOLE SODIUM 80 MG in SODIUM CHLORIDE 0.9% 100 ML IV SCH (03:23)
[2020-07-23] MEDS: SODIUM CHLORIDE 0.9% 1000ML 1,000 ML IV SCH ×3 (04:40→23:00)
[2020-07-23] MEDS ORDERED: KETOROLAC 15MG/ML VIAL (15MG/ML) IV SCH (05:45)
[2020-07-23 06:24] LABS: BASOPHILS % (AUTO) 0.5 % (0.0-5.0); HEMATOCRIT 25.4 % (42-54); MEAN CORPUSCULAR HEMOGLOBIN 30.4 pg (27.0-33.0); MEAN CORPUSCULAR HGB CONC 34.3 g/dL (32.0-36.0); MEAN CORPUSCULAR VOLUME 88.8 fL (79-99); MONOCYTES % (AUTO) 14.8 % (3.0-13.0); NEUTROPHILS % (AUTO) 59.2 % (40.0-77.0); PLATELET COUNT (AUTO) 31 K/uL (130-400); RED BLOOD CELL COUNT(AUTO) 2.86 MIL/uL (4.50-6.20); RED CELL DISTRIBUTION WIDTH 14.2 % (11.0-15.5)
[2020-07-23 06:45] LABS: CREATININE 1.1 mg/dL (0.5-1.5); POTASSIUM 4.2 mmol/L (3.5-5.1)
[2020-07-23] MEDS: INSULIN HUMULIN R 100 UNIT/ML 3ML SQ SCH ×7 (07:30→20:40)
[2020-07-23] MEDS: LACTULOSE 20 GM/30 ML UDCUP PO SCH ×3 (09:00→20:33)
[2020-07-23] MEDS: PROPRANOLOL HCL 10 MG TAB PO SCH ×4 (09:15→20:33)
[2020-07-23] MEDS ORDERED: LACT10SO62 PO (13:42)
[2020-07-23] MEDS ORDERED: PROP20TA7 PO (13:42)
[2020-07-23] MEDS ORDERED: INSU100V12 SQ (13:42)
[2020-07-23] MEDS ORDERED: INSNOV SQ (13:42)
[2020-07-23] MEDS ORDERED: FURO40TA5 PO (13:42)
[2020-07-23 15:22] LABS: HEMATOCRIT 23.9 % (42-54)
[2020-07-23] MEDS: FUROSEMIDE 40 MG TABLET PO SCH (16:36)
[2020-07-23] MEDS: INSULIN GLARGINE 100 UNITS/ML 10 ML VIAL SQ SCH (20:40)
[2020-07-23] MEDS ORDERED: TRAMADOL HCL 50 MG TABLET PO ONE (21:15)
[2020-07-24] VITALS: BP 102/54
[2020-07-24 03:44] VITALS: BP 150/81
[2020-07-24] MEDS ORDERED: KETOROLAC 15MG/ML VIAL (15MG/ML) IV SCH (04:45)
[2020-07-24 04:57] LABS: BASOPHILS % (AUTO) 0.5 % (0.0-5.0); EOSINOPHILS % (AUTO) 2.5 % (0.0-8.0); HEMATOCRIT 26.7 % (42-54); LYMPHOCYTES % (AUTO) 17.5 % (21.0-51.0); MEAN CORPUSCULAR HEMOGLOBIN 30.2 pg (27.0-33.0); MEAN CORPUSCULAR HGB CONC 34.5 g/dL (32.0-36.0); MEAN CORPUSCULAR VOLUME 87.5 fL (79-99); MONOCYTES % (AUTO) 13.8 % (3.0-13.0); NEUTROPHILS % (AUTO) 65.2 % (40.0-77.0); PLATELET COUNT (AUTO) 47 K/uL (130-400); RED BLOOD CELL COUNT(AUTO) 3.05 MIL/uL (4.50-6.20); RED CELL DISTRIBUTION WIDTH 13.8 % (11.0-15.5); WHITE BLOOD COUNT (AUTO) 4.3 K/uL (4.8-10.8)
[2020-07-24] MEDS: INSULIN HUMULIN R 100 UNIT/ML 3ML SQ SCH ×6 (05:39→21:17)
[2020-07-24 07:47] VITALS: BP 130/71
[2020-07-24] MEDS ORDERED: COMPOUND IV REFRIGERATED 1 EACH IVSOLN MISC PRN (11:45)
[2020-07-24] MEDS: LACTULOSE 20 GM/30 ML UDCUP PO SCH ×3 (12:01→21:00)
[2020-07-24] MEDS: FUROSEMIDE 40 MG TABLET PO SCH (12:01)
[2020-07-24] MEDS: PROPRANOLOL HCL 10 MG TAB PO SCH ×3 (12:02→21:05)
[2020-07-24] MEDS: SPIRONOLACTONE 25 MG TAB PO SCH (12:02)
[2020-07-24] MEDS: PANTOPRAZOLE SODIUM 80 MG in SODIUM CHLORIDE 0.9% 100 ML IV SCH (12:03)
[2020-07-24 12:04] VITALS: BP 140/73
[2020-07-24 16:19] VITALS: BP 159/81
[2020-07-24] MEDS: ACETAMINOPHEN 325 MG TAB PO PRN (16:30)
[2020-07-24] MEDS ORDERED: MAGNESIUM 2GM PREMIX 50ML 50 ML IV SCH (16:45)
[2020-07-24] MEDS: SODIUM CHLORIDE 0.9% 1000ML 1,000 ML IV SCH (16:48)
[2020-07-24 20:00] VITALS: BP 142/56
[2020-07-24] MEDS: MORPHINE 2 MG SYG (2MG/1ML) IVP PRN (21:07)
[2020-07-24] MEDS: INSULIN GLARGINE 100 UNITS/ML 10 ML VIAL SQ SCH (21:20)
[2020-07-25] VITALS (14 sets, daily range): BP systolic 123–179; BP diastolic 60–88
[2020-07-25] MEDS: PANTOPRAZOLE SODIUM 80 MG in SODIUM CHLORIDE 0.9% 100 ML IV SCH (00:52)
[2020-07-25] MEDS: SODIUM CHLORIDE 0.9% 1000ML 1,000 ML IV SCH ×2 (05:00→15:00)
[2020-07-25 05:27] LABS: BASOPHILS % (AUTO) 0.6 % (0.0-5.0); EOSINOPHILS % (AUTO) 2.5 % (0.0-8.0); HEMATOCRIT 28.3 % (42-54); LYMPHOCYTES % (AUTO) 15.3 % (21.0-51.0); MEAN CORPUSCULAR HGB CONC 34.6 g/dL (32.0-36.0); MEAN CORPUSCULAR VOLUME 89.6 fL (79-99); MONOCYTES % (AUTO) 12.1 % (3.0-13.0); PLATELET COUNT (AUTO) 64 K/uL (130-400); RED BLOOD CELL COUNT(AUTO) 3.16 MIL/uL (4.50-6.20); RED CELL DISTRIBUTION WIDTH 13.9 % (11.0-15.5); WHITE BLOOD COUNT (AUTO) 6.5 K/uL (4.8-10.8)
[2020-07-25] MEDS: INSULIN HUMULIN R 100 UNIT/ML 3ML SQ SCH ×7 (05:44→20:45)
[2020-07-25] MEDS: SPIRONOLACTONE 25 MG TAB PO SCH (09:00)
[2020-07-25] MEDS: PROPRANOLOL HCL 10 MG TAB PO SCH ×4 (09:00→20:39)
[2020-07-25] MEDS: LACTULOSE 20 GM/30 ML UDCUP PO SCH ×3 (09:00→20:46)
[2020-07-25] MEDS: FUROSEMIDE 40 MG TABLET PO SCH (09:00)
[2020-07-25] MEDS ORDERED: CEFTRIAXONE SODIUM 1 GM IVP SCH (11:15)
[2020-07-25] MEDS ORDERED: PROPOFOL 10 MG/ML 20ML VIAL IV ONE ×2 (12:05→12:09)
[2020-07-25] MEDS: MORPHINE 2 MG SYG (2MG/1ML) IVP PRN ×2 (15:25→21:41)
[2020-07-25] MEDS: INSULIN GLARGINE 100 UNITS/ML 10 ML VIAL SQ SCH (20:44)
[2020-07-26] MEDS: ACETAMINOPHEN 325 MG TAB PO PRN (02:16)
[2020-07-26] MEDS ORDERED: MORPHINE 2 MG SYG (2MG/1ML) IVP SCH (03:15)
[2020-07-26] MEDS: SODIUM CHLORIDE 0.9% 1000ML 1,000 ML IV SCH (03:47)
[2020-07-26 04:00] VITALS: BP 130/71
[2020-07-26 05:52] LABS: BASOPHILS % (AUTO) 0.6 % (0.0-5.0); EOSINOPHILS % (AUTO) 1.7 % (0.0-8.0); HEMATOCRIT 24.6 % (42-54); LYMPHOCYTES % (AUTO) 19.1 % (21.0-51.0); MEAN CORPUSCULAR HEMOGLOBIN 30.4 pg (27.0-33.0); MEAN CORPUSCULAR HGB CONC 34.6 g/dL (32.0-36.0); MEAN CORPUSCULAR VOLUME 87.9 fL (79-99); MONOCYTES % (AUTO) 15.4 % (3.0-13.0); NEUTROPHILS % (AUTO) 62.6 % (40.0-77.0); PLATELET COUNT (AUTO) 48 K/uL (130-400); RED CELL DISTRIBUTION WIDTH 13.8 % (11.0-15.5); WHITE BLOOD COUNT (AUTO) 3.5 K/uL (4.8-10.8)
[2020-07-26 06:10] LABS: CREATININE 0.9 mg/dL (0.5-1.5); POTASSIUM 3.9 mmol/L (3.5-5.1)
[2020-07-26] MEDS: INSULIN HUMULIN R 100 UNIT/ML 3ML SQ SCH ×2 (06:25→06:29)
[2020-07-26] MEDS ORDERED: PANT40TA PO (07:08)
[2020-07-26 08:19] VITALS: BP 135/75
[2020-07-26] MEDS: PROPRANOLOL HCL 10 MG TAB PO SCH (09:00)
[2020-07-26] MEDS ORDERED: PANTOPRAZOLE SODIUM 40 MG TABLET.DR PO SCH (09:00)
[2020-07-26] MEDS: FUROSEMIDE 40 MG TABLET PO SCH (10:02)
[2020-07-26] MEDS: SPIRONOLACTONE 25 MG TAB PO SCH (10:02)
[2020-07-26] MEDS: LACTULOSE 20 GM/30 ML UDCUP PO SCH ×2 (10:04)
[2020-07-26 11:28] VITALS: BP 153/80
== END 2020-07-26 14:00 | disposition home or self-care (01) | DRG 280 ==
LOC: EDH 01:07 → EDHIP 01:08 → OBSVTOIN 01:08 → 4BH 07-23 08:15 → 3BH 07-23 18:44
PROVIDERS: ADMIT Family Medicine; ATTEND Family Medicine
PROC: 30233R1 Transfusion of Nonautologous Platelets into Peripheral Vein, Percutaneous Approach (ICD-10-PCS; principal; 2020-07-25)
PROC: 06L38CZ Occlusion of Esophageal Vein with Extraluminal Device, Via Natural or Artificial Opening Endoscopic (ICD-10-PCS; 2020-07-25)
DX: K70.30 Alcoholic cirrhosis of liver without ascites (principal); D69.59 Other secondary thrombocytopenia; E11.22 Type 2 diabetes mellitus with diabetic chronic kidney disease; K29.01 Acute gastritis with bleeding; D62 Acute posthemorrhagic anemia; K76.6 Portal hypertension; I85.10 Secondary esophageal varices without bleeding; I86.4 Gastric varices; I12.9 Hypertensive chronic kidney disease with stage 1 through stage 4 chronic kidney disease, or unspecified chronic kidney disease; F41.9 Anxiety disorder, unspecified; R04.2 Hemoptysis; K31.89 Other diseases of stomach and duodenum; N18.9 Chronic kidney disease, unspecified; Z80.8 Family history of malignant neoplasm of other organs or systems; Z82.49 Family history of ischemic heart disease and other diseases of the circulatory system; Z83.3 Family history of diabetes mellitus
CPT/HCPCS: 36415; 36430; 43244; 71045; 80048; 80053; 81001; 82140; 82948; 83690; 83735; 85014; 85018; 85025; 85610; 85730; 86677; 86850; 86900; 86901; 93005; C9113; G0378; J0696; J1815; J1885; J2354; J2405; J2704; J2765; J3475; J3490; J7030; J7050; P9034

== ENCOUNTER 2020-09-26 08:13 | Day surgery (SDC) | payer MEDICAID ==
[~2020-09-26] VITALS: Ht 172.7 cm; Wt 99.8 kg
[~2020-09-26 08:13] MED LIST changes: +0.9%NACL 1000ML 1,000 ML IV ONE; -FURO40SO PO; +FURO40TA5 PO; +INSNOV SQ; +LACT10SO62 PO; -LACT10SO9 PO; -MENT118G TP; +PANT40TA PO; +PROP20TA7 PO; +SPIR100T PO; -TRAM50TA4 PO
[2020-09-26 09:30] VITALS: BP 120/67
[2020-09-26] MEDS ORDERED: ONDANSETRON 4MG INJ ONE (09:31)
[2020-09-26 10:55] VITALS: BP 115/47
[2020-09-26 11:05] VITALS: BP 113/55
[2020-09-26 11:15] VITALS: BP 117/61
[2020-09-26 11:25] VITALS: BP 120/54
== END 2020-09-26 11:30 | disposition home or self-care (01) ==
LOC: DAH 08:13 → ENDO 08:13
PROVIDERS: ATTEND Internal Medicine Gastroenterology
DX: K74.60 Unspecified cirrhosis of liver (principal); I85.10 Secondary esophageal varices without bleeding; I86.4 Gastric varices; K31.89 Other diseases of stomach and duodenum; I10 Essential (primary) hypertension; E11.9 Type 2 diabetes mellitus without complications; F41.9 Anxiety disorder, unspecified; M19.90 Unspecified osteoarthritis, unspecified site; Z86.19 Personal history of other infectious and parasitic diseases; Z79.4 Long term (current) use of insulin; Z20.822 Contact with and (suspected) exposure to COVID-19
CPT/HCPCS: 43244; 82948; 87635; A4215 ×2; A4221; A4222; A4223; A4606; A4620; A4657; A4663; C9803; J2405; J7030

== ENCOUNTER 2020-11-30 10:51 | Emergency (ER) | payer MEDICAID ==
[~2020-11-30] VITALS: Ht 175.3 cm; Wt 88.0 kg
[~2020-11-30 10:51] MED LIST changes: -0.9%NACL 1000ML 1,000 ML IV ONE; -PANT40TA PO; -SPIR100T5 PO
[2020-11-30 11:33] LABS: BASOPHILS % (AUTO) 0.6 % (0.0-5.0); EOSINOPHILS % (AUTO) 1.9 % (0.0-8.0); HEMATOCRIT 26.6 % (42-54); LYMPHOCYTES % (AUTO) 12.2 % (21.0-51.0); MEAN CORPUSCULAR HEMOGLOBIN 32.5 pg (27.0-33.0); MEAN CORPUSCULAR HGB CONC 34.6 g/dL (32.0-36.0); MONOCYTES % (AUTO) 11.3 % (3.0-13.0); NEUTROPHILS % (AUTO) 73.4 % (40.0-77.0); PLATELET COUNT (AUTO) 63 K/uL (130-400); RED BLOOD CELL COUNT(AUTO) 2.83 MIL/uL (4.50-6.20); RED CELL DISTRIBUTION WIDTH 15.2 % (11.0-15.5); WHITE BLOOD COUNT (AUTO) 5.3 K/uL (4.8-10.8)
[2020-11-30 11:34] LABS: APPEARANCE,URINE Clear (CLEAR); BILIRUBIN,URINE Negative (NEGATIVE); COLOR,URINE Dark Yellow (YELLOW); GLUCOSE, URINE (UA) >=1000 mg/dL (NEGATIVE); KETONES,URINE Negative (NEGATIVE); LEUKOCYTE ESTERASE ,URINE Small (NEGATIVE); NITRATE,URINE Negative (NEGATIVE); OCCULT BLOOD,URINE Moderate (NEGATIVE); PROTEIN,URINE Negative (NEGATIVE)
[2020-11-30 11:44] LABS: ALBUMIN 2.7 g/dL (3.5-5.0); BILIRUBIN,TOTAL 2.2 mg/dL (0.2-1.0); CREATININE 1.6 mg/dL (0.5-1.5); POTASSIUM 5.3 mmol/L (3.5-5.1); TOTAL PROTEIN, SERUM 7.4 g/dL (6.0-8.3)
[2020-11-30 11:53] LABS: BACTERIA,URINE Moderate /HPF (None Seen)
[2020-11-30 11:54] LABS: SQUAMOUS EPITHELIAL CELL,UR Moderate /HPF (0-2)
[2020-11-30] MEDS ORDERED: LACTULOSE 20 GM/30 ML UDCUP PO SCH (13:30)
[2020-11-30] MEDS ORDERED: INSULIN REGULAR, HUMAN 3ML 100 UNIT in 0.9%NACL 100ML 99 ML IV SCH ×2 (13:30)
[2020-11-30] MEDS ORDERED: ONDANSETRON 4MG INJ IVP ONE (13:30)
[2020-11-30] MEDS ORDERED: 0.9%NACL 1000ML 1,000 ML IV ONE (13:30)
[2020-11-30] MEDS ORDERED: LACTULOSE 20 GM/30 ML UDCUP ONE (13:43)
[2020-11-30] MEDS ORDERED: ONDANSETRON 4MG INJ ONE (13:43)
[2020-11-30] MEDS ORDERED: INSULIN HUMULIN R 100 UNIT/ML 3ML ONE (13:56)
[2020-11-30 17:27] VITALS: BP 126/66
[2021-03-12] MEDS ORDERED: INSU500V SQ ×2 (16:30)
[2021-03-12] MEDS ORDERED: ONDA-105 PO (16:30)
[2021-03-12] MEDS ORDERED: METO5TAB2 PO (16:30)
[2021-03-12] MEDS ORDERED: INSU300I3 SQ (16:30)
== END 2020-11-30 17:43 | disposition home or self-care (01) ==
LOC: EDH 10:51
DX: E11.65 Type 2 diabetes mellitus with hyperglycemia (principal); I10 Essential (primary) hypertension; Z79.4 Long term (current) use of insulin; Z79.899 Other long term (current) drug therapy; Z86.19 Personal history of other infectious and parasitic diseases; Z86.718 Personal history of other venous thrombosis and embolism
CPT/HCPCS: 36415; 80053; 81001; 82140; 82150; 82948 ×3; 83690; 85025; 87088; 96365; 96375; 99284; J1815 ×2; J2405; 96361; 96374

== ENCOUNTER 2020-12-04 16:56 | Observation (INO) | payer MEDICAID ==
[~2020-12-04] VITALS: Ht 175.3 cm; Wt 95.4 kg
[2020-12-04] MEDS ORDERED: PANTOPRAZOLE 40 MG/VIAL IVP ONE (17:00)
[2020-12-04] MEDS ORDERED: CEFTRIAXONE 1G VIAL 1 GM in 0.9%NACL 50ML 50 ML IV ONE (17:00)
[2020-12-04] MEDS ORDERED: 0.9%NACL 1000ML 1,000 ML IV ONE (17:00)
[2020-12-04] MEDS ORDERED: OCTREOTIDE ACETATE 1,000 MCG in DEXTROSE 5%-WATER 195 ML IV SCH (17:00)
[2020-12-04] MEDS ORDERED: METOCLOPRAMIDE 10 MG/2 ML VIAL ONE (17:16)
[2020-12-04] MEDS ORDERED: PANTOPRAZOLE 40 MG/VIAL ONE (17:17)
[2020-12-04] MEDS ORDERED: OCTREOTIDE ACETATE 100 MCG/ML AMP ONE (17:18)
[2020-12-04 17:19] LABS: BASOPHILS % (AUTO) 0.9 % (0.0-5.0); EOSINOPHILS % (AUTO) 1.9 % (0.0-8.0); HEMATOCRIT 29.4 % (42-54); LYMPHOCYTES % (AUTO) 12.9 % (21.0-51.0); MEAN CORPUSCULAR HEMOGLOBIN 32.6 pg (27.0-33.0); MEAN CORPUSCULAR HGB CONC 35.4 g/dL (32.0-36.0); MEAN CORPUSCULAR VOLUME 92.2 fL (79-99); MONOCYTES % (AUTO) 12.6 % (3.0-13.0); NEUTROPHILS % (AUTO) 70.9 % (40.0-77.0); PLATELET COUNT (AUTO) 78 K/uL (130-400); RED BLOOD CELL COUNT(AUTO) 3.19 MIL/uL (4.50-6.20); RED CELL DISTRIBUTION WIDTH 14.7 % (11.0-15.5); WHITE BLOOD COUNT (AUTO) 5.3 K/uL (4.8-10.8)
[2020-12-04 17:24] LABS: ABG BASE EXCESS 0.1 mmol/L (-2.0-3.0); ABG OXYGEN SATURATION 97.4 % (95.0-99.0); ABG PCO2 29 mmHg (35-48)
[2020-12-04] MEDS ORDERED: METOCLOPRAMIDE 10 MG/2 ML VIAL IVP ONE (17:30)
[2020-12-04 17:37] LABS: INR 1.14 (0.85-1.15); PROTHROMBIN TIME 12.3 SEC (9.6-11.6)
[2020-12-04 17:39] LABS: PARTIAL THROMBOPLASTIN TIME 25.4 SEC (26.3-35.5)
[2020-12-04] MEDS ORDERED: OCTREOTIDE ACETATE 100 MCG/ML AMP IVP SCH (17:39)
[2020-12-04 17:45] LABS: ALANINE AMINOTRANSFERASE 85 U/L (12-78); ALBUMIN 2.8 g/dL (3.5-5.0); ASPARTATE AMINOTRANSFERASE 39 U/L (10-37); BILIRUBIN,TOTAL 2.1 mg/dL (0.2-1.0); CARBON DIOXIDE 23 mmol/L (21-32); CHLORIDE 94 mmol/L (101-111); CREATININE 1.7 mg/dL (0.5-1.5); GLOMERULAR FILTR. RATE CALC 45 mL/min (>60); POTASSIUM 4.6 mmol/L (3.5-5.1); SODIUM SERUM 126 mmol/L (136-145); TOTAL PROTEIN, SERUM 7.6 g/dL (6.0-8.3); UREA NITROGEN, BLOOD 19 mg/dL (7-18)
[2020-12-04 17:47] LABS: GLUCOSE,RANDOM 519 mg/dL (70-105)
[2020-12-04 17:50] LABS: ACETAMINOPHEN < 1 mcg/mL (10-29); ALCOHOL, BLOOD 4 mg/dL (0-10); SALICYLATE < 2.8 mg/dL (2.8-20.0)
[2020-12-04 17:52] LABS: AMMONIA 188 umol/L (11-32)
[2020-12-04] MEDS ORDERED: CEFTRIAXONE 1G VIAL IVP SCH (18:00)
[2020-12-04] MEDS ORDERED: LACTULOSE 20 GM/30 ML UDCUP PO ONE (18:00)
[2020-12-04] MEDS ORDERED: IOHEXOL 350 MG/ML 100ML INFUS..BTL IV ONE (18:02)
[2020-12-04] MEDS ORDERED: INSULIN HUMULIN R 100 UNIT/ML 3ML SQ STA (18:21)
[2020-12-04] MEDS: PANTOPRAZOLE 40MG INJ 80 MG in 0.9%NACL 100ML 100 ML IV SCH (18:22)
[2020-12-04] MEDS: OCTREOTIDE 1,250 MCG /NS 250ML (DRIP) IV SCH ×2 (18:33)
[2020-12-04] MEDS ORDERED: INSULIN HUMULIN R 100 UNIT/ML 3ML ONE (18:33)
[2020-12-04] MEDS ORDERED: INSU100V37 SQ (21:52)
[2020-12-04] MEDS ORDERED: FAMO40TA7 PO (21:52)
[2020-12-04] MEDS ORDERED: RIBA200T14 PO (21:52)
[2020-12-04] MEDS ORDERED: HYDR-3421 PO (21:52)
[2020-12-04] MEDS ORDERED: SEMA1PEN3 SQ (21:52)
[2020-12-04] MEDS ORDERED: SOFO1TAB PO (21:52)
[2020-12-05] VITALS (24 sets, daily range): BP systolic 113–166; BP diastolic 64–92
[2020-12-05] MEDS: HYDROXYZINE 25 MG TABLET PO PRN ×2 (00:05→20:36)
[2020-12-05] MEDS ORDERED: PANTOPRAZOLE 40 MG/VIAL ONE (03:59)
[2020-12-05] MEDS ORDERED: 0.9%NACL 100ML 100 ML ONE (04:10)
[2020-12-05] MEDS: PANTOPRAZOLE 40MG INJ 80 MG in 0.9%NACL 100ML 100 ML IV SCH ×2 (04:15→20:37)
[2020-12-05 04:49] LABS: BASOPHILS % (AUTO) 0.4 % (0.0-5.0); EOSINOPHILS % (AUTO) 1.9 % (0.0-8.0); HEMATOCRIT 25.8 % (42-54); LYMPHOCYTES % (AUTO) 17.4 % (21.0-51.0); MEAN CORPUSCULAR HEMOGLOBIN 32.1 pg (27.0-33.0); MEAN CORPUSCULAR HGB CONC 34.1 g/dL (32.0-36.0); MEAN CORPUSCULAR VOLUME 94.2 fL (79-99); MONOCYTES % (AUTO) 9.9 % (3.0-13.0); PLATELET COUNT (AUTO) 56 K/uL (130-400); RED BLOOD CELL COUNT(AUTO) 2.74 MIL/uL (4.50-6.20); WHITE BLOOD COUNT (AUTO) 4.7 K/uL (4.8-10.8)
[2020-12-05 04:51] LABS: CREATININE 1.5 mg/dL (0.5-1.5); MAGNESIUM 1.9 mg/dL (1.80-2.40); POTASSIUM 4.4 mmol/L (3.5-5.1)
[2020-12-05 05:01] LABS: HEMOGLOBIN A1C 9.8 % (4.0-6.0)
[2020-12-05] MEDS: EPCLUSA PO SCH (09:00)
[2020-12-05] MEDS: RIBAVIRIN 600 MG PO SCH ×2 (09:00→20:35)
[2020-12-05] MEDS: LACTULOSE 20 GM/30 ML UDCUP PO SCH (09:00)
[2020-12-05] MEDS: CEFTRIAXONE 1G VIAL IVP SCH (09:06)
[2020-12-05] MEDS: PROPRANOLOL HCL 20 MG TAB PO SCH ×2 (10:11→20:36)
[2020-12-05] MEDS: SPIRONOLACTONE 25 MG TAB PO SCH (10:12)
[2020-12-05] MEDS: FUROSEMIDE 40 MG TABLET PO SCH (10:12)
[2020-12-05] MEDS ORDERED: PROPOFOL 10 MG/ML 20ML VIAL IV ONE (12:15)
[2020-12-05] MEDS ORDERED: LIDOCAINE PF 100MG/5ML (2%) SYRINGE 5ML ONE (12:16)
[2020-12-05] MEDS ORDERED: DEXTROSE 50%-WATER 50 ML DISP.SYRIN IV PRN (21:30)
[2020-12-05] MEDS ORDERED: GLUCAGON 1MG KIT 1 MG ML IM PRN (21:30)
[2020-12-05] MEDS: INSULIN HUMULIN R 100 UNIT/ML 3ML SQ SCH (22:23)
[2020-12-06] VITALS: BP 129/60
[2020-12-06 04:00] VITALS: BP 114/62
[2020-12-06] MEDS: OCTREOTIDE 1,250 MCG /NS 250ML (DRIP) IV SCH ×2 (05:12)
[2020-12-06] MEDS: INSULIN HUMULIN R 100 UNIT/ML 3ML SQ SCH ×2 (06:53→11:30)
[2020-12-06] MEDS ORDERED: INSULIN HUMULIN R 100 UNIT/ML 3ML SQ SCH (07:30)
[2020-12-06 07:48] VITALS: BP 109/69
[2020-12-06 08:14] LABS: HEPATITIS B CORE IGM Negative (Negative); HEPATITIS Bs ANTIGEN SCREEN P Negative (Negative)
[2020-12-06] MEDS: FUROSEMIDE 40 MG TABLET PO SCH (08:45)
[2020-12-06] MEDS: CEFTRIAXONE 1G VIAL IVP SCH (08:46)
[2020-12-06] MEDS: PROPRANOLOL HCL 20 MG TAB PO SCH (08:46)
[2020-12-06] MEDS: SPIRONOLACTONE 25 MG TAB PO SCH (08:46)
[2020-12-06] MEDS: EPCLUSA PO SCH (08:50)
[2020-12-06] MEDS: PANTOPRAZOLE 40MG INJ 80 MG in 0.9%NACL 100ML 100 ML IV SCH (08:51)
[2020-12-06] MEDS: LACTULOSE 20 GM/30 ML UDCUP PO SCH (08:51)
[2020-12-06] MEDS: RIBAVIRIN 600 MG PO SCH (08:51)
[2020-12-06 11:40] LABS: HEMATOCRIT 26.8 % (42-54); MEAN CORPUSCULAR HGB CONC 33.2 g/dL (32.0-36.0); MEAN CORPUSCULAR VOLUME 96.4 fL (79-99); RED BLOOD CELL COUNT(AUTO) 2.78 MIL/uL (4.50-6.20); RED CELL DISTRIBUTION WIDTH 14.6 % (11.0-15.5); WHITE BLOOD COUNT (AUTO) 4.6 K/uL (4.8-10.8)
[2020-12-06 11:50] LABS: CREATININE 1.1 mg/dL (0.5-1.5)
[2020-12-06 12:00] VITALS: BP 122/68
[2020-12-11] MEDS ORDERED: **HM** OZEMPIC 0.25MG SQ SCH (09:00)
[2021-03-12] MEDS ORDERED: ONDA-105 PO (16:30)
[2021-03-12] MEDS ORDERED: INSU300I3 SQ (16:30)
[2021-03-12] MEDS ORDERED: METO5TAB2 PO (16:30)
[2021-03-12] MEDS ORDERED: INSU500V SQ ×2 (16:30)
== END 2020-12-06 16:26 | disposition home or self-care (01) ==
LOC: EDH 16:56 → EDHIP 18:52 → INTOOBSV 18:52 → 3CH 12-05 00:40
PROVIDERS: ADMIT Internal Medicine Infectious Disease; ATTEND Internal Medicine Infectious Disease
DX: K92.0 Hematemesis (principal); Z20.822 Contact with and (suspected) exposure to COVID-19; K22.10 Ulcer of esophagus without bleeding; I85.10 Secondary esophageal varices without bleeding; I86.4 Gastric varices; K70.31 Alcoholic cirrhosis of liver with ascites; B19.20 Unspecified viral hepatitis C without hepatic coma; D62 Acute posthemorrhagic anemia; C22.9 Malignant neoplasm of liver, not specified as primary or secondary; G93.40 Encephalopathy, unspecified; D69.6 Thrombocytopenia, unspecified; E87.1 Hypo-osmolality and hyponatremia; E11.65 Type 2 diabetes mellitus with hyperglycemia; D70.9 Neutropenia, unspecified; R62.7 Adult failure to thrive; I10 Essential (primary) hypertension; E66.9 Obesity, unspecified; Z79.899 Other long term (current) drug therapy
CPT/HCPCS: 36415 ×3; 36600; 43235; 71045; 74177; 80048 ×2; 80053; 80074; 82010; 82105; 82140; 82803; 82947; 82948 ×9; 83036; 83735; 84484; 85025 ×2; 85027; 85610; 85730; 86850; 86900; 86901; 87040 ×2; 87522; 87635; 87902; 93005 ×2; 96365; 96366 ×2; 96368; 96372 ×2; 96375; 96376 ×3; 99285; A4215; A4606; A4620; C9803; G0378 ×45; G0481; J0696 ×3; J1815 ×2; J2354 ×3; J2765; J3490 ×2; J7050 ×2; Q9967; S0164 ×4; C9113; J2001; J2704

== ENCOUNTER 2021-02-06 19:34 | Emergency (ER) | payer MEDICAID ==
[~2021-02-06] VITALS: Ht 172.7 cm; Wt 95.7 kg
[~2021-02-06 19:34] MED LIST changes: +FAMO40TA7 PO; +HYDR-3421 PO; +INSU100V37 SQ; +RIBA200T14 PO; +SEMA1PEN3 SQ; +SOFO1TAB PO
[2021-02-06 21:08] LABS: BASOPHILS % (AUTO) 0.5 % (0.0-5.0); EOSINOPHILS % (AUTO) 2.4 % (0.0-8.0); HEMATOCRIT 28.9 % (42-54); LYMPHOCYTES % (AUTO) 10.4 % (21.0-51.0); MEAN CORPUSCULAR HEMOGLOBIN 30.7 pg (27.0-33.0); MEAN CORPUSCULAR HGB CONC 33.6 g/dL (32.0-36.0); MEAN CORPUSCULAR VOLUME 91.5 fL (79-99); MONOCYTES % (AUTO) 8.7 % (3.0-13.0); NEUTROPHILS % (AUTO) 77.5 % (40.0-77.0); PLATELET COUNT (AUTO) 46 K/uL (130-400); RED BLOOD CELL COUNT(AUTO) 3.16 MIL/uL (4.50-6.20); RED CELL DISTRIBUTION WIDTH 14.5 % (11.0-15.5); WHITE BLOOD COUNT (AUTO) 4.2 K/uL (4.8-10.8)
[2021-02-06 21:18] LABS: POTASSIUM 4.9 mmol/L (3.5-5.1)
[2021-02-06 21:20] LABS: INR 1.34 (0.85-1.15); PROTHROMBIN TIME 14.2 SEC (9.6-11.6)
[2021-02-06 21:24] LABS: ALBUMIN 2.6 g/dL (3.5-5.0); BILIRUBIN,TOTAL 2.5 mg/dL (0.2-1.0); TOTAL PROTEIN, SERUM 6.4 g/dL (6.0-8.3)
[2021-02-06 21:51] VITALS: BP 160/89
[2021-02-06 21:54] LABS: BILIRUBIN,URINE Negative (NEGATIVE); COLOR,URINE Dark Yellow (YELLOW); GLUCOSE, URINE (UA) Negative (NEGATIVE); KETONES,URINE Trace mg/dL (NEGATIVE); LEUKOCYTE ESTERASE ,URINE Negative (NEGATIVE); NITRATE,URINE Negative (NEGATIVE); OCCULT BLOOD,URINE Large (NEGATIVE); PROTEIN,URINE 300 mg/dL (NEGATIVE); UROBILINOGEN,URINE 0.2 mg/dL (0.2-1.0)
[2021-02-06] MEDS ORDERED: METO-296 PO (21:55)
[2021-02-06] MEDS ORDERED: ONDA4TAB10 PO (21:55)
[2021-02-06] MEDS ORDERED: LACT10SO5 PO (21:55)
[2021-02-06 21:57] LABS: APPEARANCE,URINE CLEAR (CLEAR)
[2021-02-06] MEDS ORDERED: ONDANSETRON 4MG INJ IVP ONE (22:00)
[2021-02-06] MEDS ORDERED: METOCLOPRAMIDE 10 MG/2 ML VIAL IVP ONE (22:00)
[2021-02-06] MEDS ORDERED: LACTULOSE 20 GM/30 ML UDCUP PR ONE (22:00)
[2021-02-06 22:04] LABS: BACTERIA,URINE Rare /HPF (None Seen); RBC,URINE None Seen /HPF (0-1); SQUAMOUS EPITHELIAL CELL,UR None Seen /HPF (0-2); WBC,URINE 0-1 /HPF (0-1)
== END 2021-02-06 22:20 | disposition home or self-care (01) ==
LOC: EDH 19:34
DX: D69.6 Thrombocytopenia, unspecified (principal); E72.20 Disorder of urea cycle metabolism, unspecified; R74.8 Abnormal levels of other serum enzymes; R11.2 Nausea with vomiting, unspecified; E11.9 Type 2 diabetes mellitus without complications; I10 Essential (primary) hypertension; Z79.4 Long term (current) use of insulin; Z79.899 Other long term (current) drug therapy
CPT/HCPCS: 36415; 71045; 80053; 81001; 82140; 83605; 83690; 83880; 84484; 85025; 85610; 87040 ×2; 87088; 93005; 96374; 96375; 99285; J2405; J2765

== ENCOUNTER 2021-04-01 22:23 | Emergency (ER) | payer MEDICARE ==
[~2021-04-01] VITALS: Ht 172.7 cm; Wt 100.7 kg
[~2021-04-01 22:23] MED LIST changes: -FURO40TA5 PO; -INSNOV SQ; -INSU100V12 SQ; -INSU100V37 SQ; +INSU300I3 SQ; +INSU500V SQ; +LACT10SO5 PO; -LACT10SO62 PO; +METO5TAB2 PO; +ONDA-105 PO; -RIBA200T14 PO
[2021-04-01 22:46] LABS: EOSINOPHILS % (AUTO) 2.9 % (0.0-8.0); HEMATOCRIT 32.5 % (42-54); LYMPHOCYTES % (AUTO) 14.4 % (21.0-51.0); MEAN CORPUSCULAR HEMOGLOBIN 33.1 pg (27.0-33.0); MEAN CORPUSCULAR HGB CONC 35.4 g/dL (32.0-36.0); MEAN CORPUSCULAR VOLUME 93.7 fL (79-99); MONOCYTES % (AUTO) 13.1 % (3.0-13.0); NEUTROPHILS % (AUTO) 68.1 % (40.0-77.0); PLATELET COUNT (AUTO) 122 K/uL (130-400); RED BLOOD CELL COUNT(AUTO) 3.47 MIL/uL (4.50-6.20); RED CELL DISTRIBUTION WIDTH 15.6 % (11.0-15.5)
[2021-04-01 22:56] LABS: INR 1.44 (0.85-1.15); PROTHROMBIN TIME 15.2 SEC (9.6-11.6)
[2021-04-01 22:57] LABS: PARTIAL THROMBOPLASTIN TIME 31.4 SEC (26.3-35.5)
[2021-04-01 22:59] LABS: CREATININE 1.2 mg/dL (0.5-1.5); POTASSIUM 4.7 mmol/L (3.5-5.1)
[2021-04-01 23:05] LABS: ALBUMIN 2.3 g/dL (3.5-5.0); TOTAL PROTEIN, SERUM 6.3 g/dL (6.0-8.3)
[2021-04-02 00:03] LABS: APPEARANCE,URINE Clear (CLEAR); BILIRUBIN,URINE Negative (NEGATIVE); COLOR,URINE Dark Yellow (YELLOW); GLUCOSE, URINE (UA) Negative (NEGATIVE); KETONES,URINE Negative (NEGATIVE); LEUKOCYTE ESTERASE ,URINE Trace (NEGATIVE); NITRATE,URINE Negative (NEGATIVE); OCCULT BLOOD,URINE Negative (NEGATIVE); PROTEIN,URINE POS 2+ mg/dL (NEGATIVE)
[2021-04-02 00:10] LABS: BACTERIA,URINE Rare /HPF (None Seen); RBC,URINE None Seen /HPF (0-1); WBC,URINE 0-1 /HPF (0-1)
[2021-04-02 00:11] LABS: SQUAMOUS EPITHELIAL CELL,UR Few /HPF (0-2); TRANSITIONAL EPI CELLS,URINE Few /HPF (None Seen)
[2021-04-02 00:39] VITALS: BP 142/76
== END 2021-04-02 01:15 | disposition home or self-care (01) ==
LOC: EDH 22:23
DX: K72.90 Hepatic failure, unspecified without coma (principal); K74.60 Unspecified cirrhosis of liver; I10 Essential (primary) hypertension; E11.9 Type 2 diabetes mellitus without complications; Z79.4 Long term (current) use of insulin; Z79.899 Other long term (current) drug therapy
CPT/HCPCS: 36415; 71045; 80053; 81001; 82140; 82550; 83605; 83690; 84484; 85025; 85610; 85730; 87040; 93005

== ENCOUNTER 2021-06-08 19:05 | Emergency (ER) | payer MEDICARE ==
[~2021-06-08] VITALS: Ht 172.7 cm; Wt 96.2 kg
[~2021-06-08 19:05] MED LIST changes: +CLOT15CR5 TP; +DICY20TA3 PO; +ESOM40CA54 PO; +FURO40TA5 PO; -HYDR-3421 PO; -LACT10SO5 PO; +LACT10SO9 PO; +METO10TA3 PO; -METO5TAB2 PO; +ONDA-104 PO; -ONDA-105 PO; +PROP10TA10 PO; -PROP20TA7 PO; +RIFA550T PO; -SEMA1PEN3 SQ; -SOFO1TAB PO; -SPIR100T PO; +SPIR100T5 PO; +TRAM50TA4 PO; +ZINC220T4 PO
[2021-06-08 20:31] LABS: BASOPHILS % (AUTO) 0.4 % (0.0-5.0); EOSINOPHILS % (AUTO) 1.8 % (0.0-8.0); HEMATOCRIT 27.5 % (42-54); LYMPHOCYTES % (AUTO) 14.8 % (21.0-51.0); MEAN CORPUSCULAR HEMOGLOBIN 34.7 pg (27.0-33.0); MEAN CORPUSCULAR HGB CONC 36.4 g/dL (32.0-36.0); MEAN CORPUSCULAR VOLUME 95.5 fL (79-99); MONOCYTES % (AUTO) 11.9 % (3.0-13.0); NEUTROPHILS % (AUTO) 69.5 % (40.0-77.0); PLATELET COUNT (AUTO) 55 K/uL (130-400); RED BLOOD CELL COUNT(AUTO) 2.88 MIL/uL (4.50-6.20); RED CELL DISTRIBUTION WIDTH 15.8 % (11.0-15.5); WHITE BLOOD COUNT (AUTO) 7.3 K/uL (4.8-10.8)
[2021-06-08 20:38] LABS: INR 1.8 (0.85-1.15); PROTHROMBIN TIME 18.6 SEC (9.6-11.6)
[2021-06-08 20:39] LABS: PARTIAL THROMBOPLASTIN TIME 36.3 SEC (26.3-35.5)
[2021-06-08 21:17] LABS: POTASSIUM 4.7 mmol/L (3.5-5.1)
[2021-06-08 21:22] LABS: ALBUMIN 1.7 g/dL (3.5-5.0); BILIRUBIN,TOTAL 2.1 mg/dL (0.2-1.0)
[2021-06-08 23:00] VITALS: BP 127/73
== END 2021-06-08 23:24 | disposition home or self-care (01) ==
LOC: EDH 19:05
DX: K92.1 Melena (principal); R04.0 Epistaxis; Z79.01 Long term (current) use of anticoagulants; E11.9 Type 2 diabetes mellitus without complications; I10 Essential (primary) hypertension; Z79.899 Other long term (current) drug therapy; Z79.4 Long term (current) use of insulin; Z98.890 Other specified postprocedural states
CPT/HCPCS: 36415; 80053; 82140; 82270; 85025; 85610; 85730; 86850; 86900; 86901

== ENCOUNTER 2021-07-17 08:56 | Emergency (ER) | payer MEDICARE ==
[2021-07-17 09:09] VITALS: BP 153/81
[2021-07-17] MEDS ORDERED: DEXTROSE 50%-WATER 50 ML DISP.SYRIN IV ONE (09:16)
[2021-07-17 09:22] LABS: BASOPHILS % (AUTO) 0.5 % (0.0-5.0); EOSINOPHILS % (AUTO) 0.7 % (0.0-8.0); HEMATOCRIT 26.4 % (42-54); LYMPHOCYTES % (AUTO) 9.4 % (21.0-51.0); MEAN CORPUSCULAR HEMOGLOBIN 33.8 pg (27.0-33.0); MEAN CORPUSCULAR HGB CONC 36.7 g/dL (32.0-36.0); MONOCYTES % (AUTO) 5.6 % (3.0-13.0); NEUTROPHILS % (AUTO) 83.6 % (40.0-77.0); PLATELET COUNT (AUTO) 44 K/uL (130-400); RED BLOOD CELL COUNT(AUTO) 2.87 MIL/uL (4.50-6.20); RED CELL DISTRIBUTION WIDTH 15.4 % (11.0-15.5); WHITE BLOOD COUNT (AUTO) 4.1 K/uL (4.8-10.8)
[2021-07-17 09:30] LABS: CREATININE 0.8 mg/dL (0.5-1.5); POTASSIUM 3.6 mmol/L (3.5-5.1)
[2021-07-17 09:39] LABS: ALBUMIN 2.1 g/dL (3.5-5.0); BILIRUBIN,TOTAL 4.4 mg/dL (0.2-1.0); TOTAL PROTEIN, SERUM 5.8 g/dL (6.0-8.3)
[2021-07-17 10:11] LABS: PLATELET MORPHOLOGY COMMENT MARKED DECREASE
[2021-07-17 11:01] LABS: APPEARANCE,URINE Clear (CLEAR); BILIRUBIN,URINE Negative (NEGATIVE); COLOR,URINE Dark Yellow (YELLOW); GLUCOSE, URINE (UA) Negative (NEGATIVE); KETONES,URINE Negative (NEGATIVE); LEUKOCYTE ESTERASE ,URINE Negative (NEGATIVE); NITRATE,URINE Negative (NEGATIVE); OCCULT BLOOD,URINE Trace (NEGATIVE); PH,URINE 5.5 (5.0-8.0); PROTEIN,URINE POS 2+ mg/dL (NEGATIVE); UROBILINOGEN,URINE 0.2 mg/dL (0.2-1.0)
[2021-07-17 11:08] LABS: BACTERIA,URINE Rare /HPF (None Seen); RBC,URINE 0-1 /HPF (0-1); SQUAMOUS EPITHELIAL CELL,UR Rare /HPF (0-2); WBC,URINE 0-1 /HPF (0-1)
[2021-07-17 11:10] LABS: AMPHET/METH SCREEN,URINE NEGATIVE (NEGATIVE); BARBITURATE SCREEN, URINE NEGATIVE (NEGATIVE); BENZODIAZEPINES SCREEN,URINE NEGATIVE (NEGATIVE); CANNABINOID SCREEN,URINE NEGATIVE (NEGATIVE); COCAINE SCREEN,URINE NEGATIVE (NEGATIVE); OPIATE SCREEN,URINE NEGATIVE (NEGATIVE); PHENCYCLIDINE SCREEN,URINE NEGATIVE (NEGATIVE)
== END 2021-07-17 11:49 | disposition home or self-care (01) ==
LOC: EDH 08:56
DX: E11.649 Type 2 diabetes mellitus with hypoglycemia without coma (principal); E78.00 Pure hypercholesterolemia, unspecified; I10 Essential (primary) hypertension; Z79.899 Other long term (current) drug therapy
CPT/HCPCS: 36415; 80053; 80305; 81001; 82948 ×4; 85025; 96374; 99283; J7070

== ENCOUNTER 2021-11-22 01:17 | Emergency (ER) | payer MEDICARE ==
[~2021-11-22 01:17] MED LIST changes: -DICY20TA3 PO; -ESOM40CA54 PO; +HYDR-3421 PO; +INSU100V37 SQ; +LOSA100T58 PO; +OMEP40CA21 PO; +TRAZ-185 PO; -ZINC220T4 PO
[2021-11-22 01:34] LABS: BASOPHILS % (AUTO) 0.7 % (0.0-5.0); EOSINOPHILS % (AUTO) 3.1 % (0.0-8.0); HEMATOCRIT 24.6 % (42-54); LYMPHOCYTES % (AUTO) 15.9 % (21.0-51.0); MEAN CORPUSCULAR HEMOGLOBIN 34.2 pg (27.0-33.0); MEAN CORPUSCULAR HGB CONC 35.8 g/dL (32.0-36.0); MEAN CORPUSCULAR VOLUME 95.7 fL (79-99); MONOCYTES % (AUTO) 15.6 % (3.0-13.0); NEUTROPHILS % (AUTO) 63.8 % (40.0-77.0); PLATELET COUNT (AUTO) 62 K/uL (130-400); RED BLOOD CELL COUNT(AUTO) 2.57 MIL/uL (4.50-6.20); RED CELL DISTRIBUTION WIDTH 15.4 % (11.0-15.5); WHITE BLOOD COUNT (AUTO) 5.5 K/uL (4.8-10.8)
[2021-11-22 01:43] LABS: CREATININE 1.3 mg/dL (0.5-1.5)
[2021-11-22 01:50] LABS: ALBUMIN 1.6 g/dL (3.5-5.0); TOTAL PROTEIN, SERUM 5.6 g/dL (6.0-8.3)
[2021-11-22 06:32] VITALS: BP 131/70
[2021-11-22] MEDS ORDERED: LACTULOSE 20 GM/30 ML UDCUP PO ONE (09:00)
== END 2021-11-22 10:19 | disposition home or self-care (01) ==
LOC: EDH 01:17
DX: K76.82 Hepatic encephalopathy (principal); K74.60 Unspecified cirrhosis of liver; E11.9 Type 2 diabetes mellitus without complications; I10 Essential (primary) hypertension; Z79.4 Long term (current) use of insulin; Z79.899 Other long term (current) drug therapy; Z98.890 Other specified postprocedural states
CPT/HCPCS: 36415; 71045; 80053; 82140; 83880; 84484; 85025; 93005

== ENCOUNTER 2021-11-24 05:16 | Emergency (ER) | payer MEDICARE ==
[~2021-11-24] VITALS: Ht 182.9 cm; Wt 99.8 kg
[2021-11-24 06:05] LABS: BASOPHILS % (AUTO) 0.8 % (0.0-5.0); EOSINOPHILS % (AUTO) 2.7 % (0.0-8.0); HEMATOCRIT 23.1 % (42-54); LYMPHOCYTES % (AUTO) 17.2 % (21.0-51.0); MEAN CORPUSCULAR HEMOGLOBIN 33.7 pg (27.0-33.0); MEAN CORPUSCULAR HGB CONC 35.5 g/dL (32.0-36.0); MEAN CORPUSCULAR VOLUME 95.1 fL (79-99); MONOCYTES % (AUTO) 13.9 % (3.0-13.0); NEUTROPHILS % (AUTO) 65.2 % (40.0-77.0); PLATELET COUNT (AUTO) 54 K/uL (130-400); RED BLOOD CELL COUNT(AUTO) 2.43 MIL/uL (4.50-6.20); RED CELL DISTRIBUTION WIDTH 15.2 % (11.0-15.5); WHITE BLOOD COUNT (AUTO) 4.9 K/uL (4.8-10.8)
[2021-11-24 06:18] LABS: CARBON DIOXIDE 16 mmol/L (21-32); CHLORIDE 114 mmol/L (101-111); CREATININE 0.9 mg/dL (0.5-1.5); GLOMERULAR FILTR. RATE CALC 93 mL/min (>60); GLUCOSE,RANDOM 132 mg/dL (70-105); POTASSIUM 4.2 mmol/L (3.5-5.1); SODIUM SERUM 139 mmol/L (136-145); UREA NITROGEN, BLOOD 16 mg/dL (7-18)
[2021-11-24 06:20] LABS: INR 1.26 (0.85-1.15); PROTHROMBIN TIME 13.6 SEC (9.6-11.6)
[2021-11-24 06:22] LABS: ALANINE AMINOTRANSFERASE 66 U/L (12-78); ALBUMIN 1.1 g/dL (3.5-5.0); ALCOHOL, BLOOD < 3 mg/dL (0-10); AMMONIA 25 umol/L (11-32); ASPARTATE AMINOTRANSFERASE 43 U/L (10-37); TOTAL PROTEIN, SERUM 4.2 g/dL (6.0-8.3)
[2021-11-24 06:30] LABS: B-TYPE NATRIURETIC PEPTIDE 30 pg/mL (0-100)
[2021-11-24 09:21] VITALS: BP 123/64
[2021-11-24] MEDS ORDERED: MAGNESIUM OXIDE 400 MG TABLET PO SCH (09:26)
[2021-11-24] MEDS ORDERED: MAGNESIUM OXIDE 400 MG TABLET PO ONE (09:27)
== END 2021-11-24 09:45 | disposition home or self-care (01) ==
LOC: EDH 05:16
DX: K76.82 Hepatic encephalopathy (principal); K74.60 Unspecified cirrhosis of liver; E11.9 Type 2 diabetes mellitus without complications; I10 Essential (primary) hypertension; Z79.4 Long term (current) use of insulin; Z79.899 Other long term (current) drug therapy; Z98.890 Other specified postprocedural states
CPT/HCPCS: 36415; 70450; 71045; 80053; 82140; 83605; 83735; 83880; 84145; 85025; 85610; 86850; 86900; 86901; 93005